=== PATIENT | female | born 1945 | race Caucasian/White ===

== ENCOUNTER 2019-06-21 16:21 | Inpatient (IN) | payer MEDICARE, SELFPAY ==
[2019-06-21] VITALS (22 sets, daily range): BP systolic 78–129; BP diastolic 48–112; PULSE 43–149; RESP 15–28; TEMP 36.8–37.1; O2SAT 46–99
--- NOTE | ~2019-06-21 | XR_ITS ---
XR chest 1V portable 06/24/2019 06:32 Indication: Pneumonia Procedure: AP portable chest Comparison: Comparison to multiple prior studies sequentially, with oldest reviewed study dated 04/2017. Findings: Heart size normal. Persistent extensive bilateral airspace disease without significant causey ge. No pleural effusion or pneumothorax. There is atherosclerosis. Impression: 1: Stable bilateral airspace disease since 06/21/2019. Differential diagnosis includes pneumonia versu s edema. Reviewed, dictated and finalized at location A. Impression: 1: Stable bilateral airspace disease since 06/21/2019. Differential diagnosis in cludes pneumonia versus edema.
--- NOTE | ~2019-06-21 | XR_ITS ---
XR chest 1V portable 06/23/2019 06:27 Indication: Pneumonia. Dyspnea. Procedure: AP portable chest Comparison: Comparison to multiple prior studies sequentially, with oldest reviewed study dated 04/2017. Findings: Heart size normal. Improving bilateral airspace disease. No pleural effusion or pneumothora x. Central line tip near the cavoatrial junction. Impression: 1: Improving bilateral airspace disease may represent pneumonia or edema. Reviewed, dictated and finalized at location A. Impression: 1: Improving bilateral airspace disease may represent pneumonia or edema.
--- NOTE | ~2019-06-21 | CT_ITS ---
EXAMINATION: CT brain wo con DATE: 06/21/2019 17:12 INDICATION: Weakness. TECHNIQUE: Computed tomography (CT) of the head was performed without intravenous contrast. The dose- length product was 681.00 mGy-cm. The mA was adjusted according to patient size. Iterative reconstruc tion technique was employed. COMPARISON: CT dated 06/23/2017 FINDINGS: Generalized atrophy. There are scattered moderate periventricular and subcortical white mat ter changes, most likely related to small vessel ischemic disease (microangiopathy). There is intracr anial atherosclerosis. No acute intracranial hemorrhage, infarction, mass or mass effect. No ventricu lomegaly or midline shift. Basilar cisterns are patent. Paranasal sinuses and mastoids are pneumatize d. No depressed skull fractures. IMPRESSION: 1. No acute intracranial abnormality. 2: Chronic age-related findings. Reviewed, dictated and finalized at location A.
--- NOTE | ~2019-06-21 | XR_ITS ---
XR chest port-a-cath/central 06/21/2019 22:36 Indication: Central line placement. Pneumonia. Procedure: AP portable chest Comparison: 06/21/2019 Findings: Heart size normal. Interval progression of diffuse bilateral airspace disease. Right IJ gabriela tral line tip near the cavoatrial junction. There is atherosclerosis and ectasia of the aorta. No ple ural effusion or pneumothorax. Impression: 1: Interval progression of diffuse bilateral airspace disease which may represent edema or pneumonia. Reviewed, dictated and finalized at location A. Impression: 1: Interval progression of diffuse bilateral airspace disease which may represe nt edema or pneumonia.
--- NOTE | ~2019-06-21 | XR_ITS ---
XR chest 1V portable 06/21/2019 17:16 Indication: Patient tested positive for code with 2 weeks ago. Weakness. Procedure: AP view of the chest Comparison: 05/24/2017 Findings: There are bibasilar infiltrates. Heart size normal. There is atherosclerosis. No edema or p neumothorax. The lungs are hyperinflated which is consistent with, but not diagnostic of chronic obst ructive pulmonary disease. There are degenerative changes of the shoulders. Impression: 1: Bibasilar infiltrates may represent atelectasis and/or pneumonia. Reviewed, dictated and finalized at location A. Impression: 1: Bibasilar infiltrates may represent atelectasis and/or pneumonia.
--- NOTE | ~2019-06-21 | XR_ITS ---
EXAMINATION: XR chest 1V portable DATE: 06/25/2019 06:20 INDICATION: Pneumonia TECHNIQUE: frontal view of the chest was obtained. COMPARISON: Chest radiograph dated 06/24/2019 FINDINGS: No significant interval change in bilateral mild scattered patchy airspace opacities. No pleural effu morteza or pneumothorax. The cardiomediastinal silhouette is normal. Atherosclerotic aorta. Cholecystect trever clips in the right upper quadrant. IMPRESSION: 1. Unchanged mild scattered bilateral airspace disease most likely related to pneumonia Reviewed, dictated and finalized at location A. IMPRESSION: 1. Unchanged mild scattered bilateral airspace disease most likely related to p neumonia
--- NOTE | 2019-06-21 16:15 | PC.NURSE ---
Pt. was sinus rhythm at 82 BPM. Pt. went into atrial flutter at 142 BPM shortly after. EDP notified and is aware. Second EKG ordered.
--- NOTE | 2019-06-21 16:25 | ECG_ITS ---
Measurements Intervals [place] Rate: 82 P: 101 GA: 196 QRS: 31 QRSD: 125 T: 58 QT: 399 QTc: 469 Interpretive Statements SINUS RHYTHM RIGHT BUNDLE BRANCH BLOCK BASELINE ARTIFACT- I, III, AVL, V5 ABNORMAL ECG Electronically Signed On 06-21-2019 16:42:55 CDT by Bryan Cole D.O.
--- NOTE | 2019-06-21 16:33 | ED.AMS ---
HPI - Altered Mental Status General Chief Complaint: Weakness Stated Complaint: LETHARGY Time Seen by Provider: 06/21/19 16:23 Source: EMS Limitations: altered mental status History of Present Illness HPI narrative: Pt sent here from the NH due to decrease responsiveness. Unable to get any history due to ams. Related Data Home Medications Medication Instructions Recorded Confirmed aspirin [Aspirin Low Dose] 81 mg PO DAILY 06/21/19 atorvastatin 20 mg PO DAILY 06/21/19 cholecalciferol (vitamin D3) 25 mcg PO DAILY 06/21/19 escitalopram oxalate 10 mg PO DAILY 06/21/19 furosemide 40 mg PO DAILY 06/21/19 levothyroxine 137 mcg PO DAILY 06/21/19 losartan 100 mg PO DAILY 06/21/19 metformin 500 mg PO DAILY 06/21/19 Allergies Allergy/AdvReac Type Severity Reaction Status Date / Time codeine AdvReac Mild NAUSEA Verified 06/23/17 07:12 Review of Systems Review of Systems: ROS unobtainable: Yes unobtainable due to mental status [facility] Social History Social History Gender identity (if verbalized by the patient): Female Exam Const: General: ill appearing Other: lethargic HENMT: Ears: external ears normal General nose exam: Normal nares present Face and sinus: normal facial exam Mouth: Yes dry mucous membranes Neck: Neck: normal visual inspection Chest: Chest palpation & inspection: normal inspection of the chest Resp: Effort & Inspection: normal respiratory effort Auscultation: clear to auscultation bilaterally Cardio: Rate: tachycardic Rhythm: regular rhythm GI: GI Palp: Yes Soft to palpation Auscultation: normal bowel sounds Skin: General skin exam: normal color Neuro: Other: lethargic, non verbal, unable to follow commands Course Vital Signs Vital signs: Vital Signs Temperature 36.8 C 06/21/19 16:08 Pulse Rate 142 H 06/21/19 16:08 Respiratory Rate 24 H 06/21/19 16:08 Blood Pressure 107/64 06/21/19 16:08 Pulse Oximetry 96 06/21/19 16:08 Temperature 37.1 C 06/21/19 20:30 Pulse Rate 43 L 06/21/19 21:15 Respiratory Rate 15 06/21/19 21:15 Blood Pressure 95/55 L 06/21/19 21:15 Pulse Oximetry 94 06/21/19 21:15 Procedures Central Line Placement Right IJ: Central Line Date: 06/21/19 Central Line Time: 22:00 Performed Emergently - Given emergent patient condition, temporal constraints may have precluded informed consent.: Yes Time Out Performed: Yes Patient Placed on Monitor/Pulse Ox: Yes Max. Sterile Barrier Technique: Caps Central Line Prep: 2% chlorhexidine scrub and sterile drapes applied Technique: US-Guided Local Anesthetic: lidocaine 1% Ultrasound Used for Placement: Yes Central Line Lumen Inserted: triple Post Procedure: sutured in place, good blood return, all ports aspirated, flushed, capped and sterile dressing applied Patient Tolerated Procedure: well Complications: none MDM - Altered Mental Status MDM Narrative Medical decision making narrative: DISCUSSED WITH DR GILBERT AND ACCEPTED THE ADMIT Lab Data Result diagrams: 06/21/19 16:53 06/21/19 16:53 Labs: Lab Results 06/21/19 06/21/19 06/21/19 Range/Units 16:37 16:52 16:53 WBC 13.3 H (4.5-10.0) K/mm3 RBC 4.45 (4.2-5.4) M/mm3 Hgb 12.8 (12.0-15.0) g/dL Hct 41.3 (37.0-47.0) % MCV 92.8 (80-100) fl MCH 28.8 (26-34) pg MCHC 31.0 L (32-36) g/dl RDW 15.1 H (11.5-14.5) % Plt Count 415 H (150-375) k/mm3 MPV 12.7 H (7.4-10.4) fl Immature Gran % (Auto) 2.7 H (0-0.5) % Neut % (Auto) 83.6 H (45.5-73.1) % Lymph % (Auto) 8.9 L (18.3-44.2) % [place] % (Auto) 4.6 (2.6-8.5) % Eos % (Auto) 0.0 (0-4.4) % Baso % (Auto) 0.2 (0.2-1.2) % Lymph # (Auto) 1.19 (0.9-3.2) K/mm3 [place] # (Auto) 0.6 (0.1-0.6) K/mm3 Eos # (Auto) 0.0 (0-0.3) K/mm3 Baso # (Auto) 0.0 (0.0-0.1) K/mm3 Abs Immat Gran (auto) 0
[2019-06-21] MEDS: SODIUM CHLORIDE 0.9% IV 1,000 ML 999 ML IV CONT (16:58)
[2019-06-21 16:59] LABS: Glucose Point of Care 213 (65-105)
[2019-06-21 17:04] LABS: Basophils Percent Auto 0.2 % (0.2-1.2); Hematocrit 41.3 % (37.0-47.0); Hemoglobin 12.8 g/dL (12.0-15.0); Immature Granulocyte Absolute 0.36 K/mm3 (0.00-0.031); Immature Granulocyte Percent A 2.7 % (0-0.5); Lymphocytes Absolute Auto 1.19 K/mm3 (0.9-3.2); Lymphocytes Percent Auto 8.9 % (18.3-44.2); Mean Corpuscular Hemoglobin 28.8 pg (26-34); Mean Corpuscular Volume 92.8 fl (80-100); Mean Platelet Volume 12.7 fl (7.4-10.4); Monocytes Absolute Auto 0.6 K/mm3 (0.1-0.6); Monocytes Percent Auto 4.6 % (2.6-8.5); Neutrophils Absolute Auto 11.2 K/mm3 (1.3-6.7); Neutrophils Percent Auto 83.6 % (45.5-73.1); Platelet Count Result 415 k/mm3 (150-375); Red Blood Count 4.45 M/mm3 (4.2-5.4); Red Cell Distribution Width 15.1 % (11.5-14.5); White Blood Count 13.3 K/mm3 (4.5-10.0)
[2019-06-21 17:10] LABS: Add Urine Microscopic? YES; Appearance Urine Cloudy (Clear); Bacteria Urine Trace /hpf; Bilirubin Urine Negative (Negative); Blood Urine 2+ (Negative); Budding Yeast Urine Present /hpf; Color Urine Yellow (Yellow); Glucose Urine UA Negative (Negative); Hyaline Casts Urine 15-19 /lpf; Ketones Urine Trace mg/dL (Negative); Leukocyte Esterase Ur 3+ LEU/UL (Negative); Nitrate Urine Negative (Negative); Protein Urine 1+ mg/dL (Negative); RBC Urine 21-50 /hpf (0-2); Specific Grav Ur 1.018 (1.001-1.035); Squamous Epithelial Cell Urine Many /hpf (Few); Urobilinogen Urine Negative mg/dL (<2.0); WBC Urine >75 /hpf
--- NOTE | 2019-06-21 17:15 | ECG_ITS ---
Measurements Intervals [place] Rate: 151 P: 257 LA: 74 QRS: 73 QRSD: 122 T: 33 QT: 320 QTc: 509 Interpretive Statements ATRIAL FLUTTER/TACHYCARDIA WITH RAPID VENTRICULAR RESPONSE RIGHT BUNDLE BRANCH BLOCK ST-T WAVE ABNORMALITY IN ANTEROLAT/INF LEADS- CONSIDER ISCHEMIA BASELINE ARTIFACT- I, II ABNORMAL ECG Electronically Signed On 06-22-2019 7:05:15 CDT by Bryan Cole D.O.
[2019-06-21 17:17] LABS: Alanine Aminotransferase 12 U/L (4-35); Albumin Level 4.1 g/dL (3.5-5.1); Alkaline Phosphatase 105 U/L (38-126); Aspartate Amino Transferase 29 U/L (14-36); Blood Urea Nitrogen 115 mg/dL (7-17); Calcium 9.9 mg/dL (8.4-10.2); Carbon Dioxide 28 mmol/L (22-30); Chloride 115 mmol/L (98-107); Estimated CRCL calculation 15 ml/min; Estimated Glomerular Filt Rate 16; Glucose 257 mg/dL (65-105); Lactic Acid Reflex 3.2 mmol/L (0.7-2.1); Potassium 4.1 mmol/L (3.4-5.0); Sodium 155 mmol/L (137-145)
[2019-06-21] MEDS: SODIUM CHLORIDE 0.9% IV 2,200 ML/1,000 ML BAG 999 ML IV CONT (17:39)
[2019-06-21 17:44] LABS: CRP 5.5 mg/dL (<1.0)
--- NOTE | 2019-06-21 17:57 | PC.NURSE ---
1724 Pt. BP 79/52 via manual auscultation. EDP notified. EDP ordered 30ml/kg/hr of normal saline via verbal order readback with pressure bag on fluids. EDP order second large bore IV via verbal order readback. HR 154 1735 1st bag of normal saline infused, BP is 86/51, second bag initiated, HR 146. Rocephin started. 1745 BP is 97/58 HR 133. EDP notified. Will continue to monitor Pt. status See MAR charting for medications. Vitals charted.
--- NOTE | 2019-06-21 18:36 | PC.NURSE ---
Addendum entered by William Valadez RN 06/21/19 18:38: 7mcg/min (13.1 mls/hr) Original Note: Per EDP via verbal order readback start IVFs going at 250ml/hrs in peripheral line and start levophed at 7mcg/hr in the other peripheral line and set up for central line access.
[2019-06-21] MEDS: NOREPINEPHRINE 8 MG/D5W 250 ML 8 MG/250 ML BAG 13.1 MG IV CONT (18:38)
[2019-06-21] MEDS: SODIUM CHLORIDE 0.9% IV 2,200 ML/1,000 ML BAG 250 ML IV CONT (18:39)
--- NOTE | 2019-06-21 18:54 | PC.NURSE ---
IVFs infused 1800. Blood pressure decreased to 78/67 at 1830, EDP notified. See MAR and additional notes for intervention.
[2019-06-21 20:02] LABS: Reflex Lactic Acid Yes or No Add Lactic
[2019-06-21 20:41] LABS: Lactic Acid 3.4 mmol/L (0.7-2.1)
--- NOTE | 2019-06-21 22:00 | PC.NURSE ---
central line placed by RICKY Rowan. Lorri REYES at bedside. pt tolerated well.
[2019-06-21] MEDS: LORAZEPAM INJ 2 MG/ML VIAL (22:29)
--- NOTE | 2019-06-21 23:46 | PM.IMHP ---
H&P: HPI History of Present Illness Chief complaint: Septic Shock Narrative: Date and time of patient contact: 06/22/2019 at 1:05 a.m. Source of information: Outside medical records, ER report. Patient is unable to provide history due to her advanced dementia. Bhumi Levin is a 74 year old female with a past medical history of dementia, CVA, type 2 diabetes mellitus, hypertension, and positive COVID-19 testing 2 weeks ago who presented to the ER via EMS from [facility] due to increasing lethargy and unresponsive. The patient's baseline mental status is unknown. shelter staff reported that the patient's oxygen saturations were 70% on room air. However when EMS arrived at the facility patient's oxygen saturations were 92% on room air. The patient was placed on 2 L nasal cannula with improvement in oxygen saturations 96% on room air. The patient was in junctional tachycardia/atrial flutter on arrival to the ER with heart rate in the 150s. To the ER was 107/64 but almost immediately dropped to 79/52. Patient was placed on Levophed through peripheral IV and received 30 mL/kilos fluid bolus in the ER. Patient's blood pressures improved to the low 100 systolic over 50s diastolic. Her heart rate improved and range between 46 and 82. On telemetry. The patient is in sinus rhythm/bradycardia with a first-degree AV block. With stimulation the patient's heart rate does increase up into the 60s and 80s. But at rest her heart rate drops into the 40s. Patient arrived to the unit on 5 mg of Levophed and her heart rate was 130/70. The patient was able to follow simple commands such as sticking her tongue. Her responses to commands were variable. She did not really speak with staff but was moaning intermittently. Review of Systems Review of Systems: ROS unobtainable: Yes unobtainable due to medical condition and unobtainable due to mental status [facility] Past Medical History Medical History (Updated 06/21/19 @ 23:55 by Jocelyn Bansal DO) Coronary artery disease CVA (cerebral vascular accident) Dementia Essential hypertension GERD (gastroesophageal reflux disease) Hyperlipidemia Hypothyroidism Osteomyelitis of right shoulder August 2018-November 2018 Rheumatoid arthritis Tobacco dependence Type 2 diabetes mellitus Vitamin D deficiency Surgical History Surgical History (Updated 06/21/19 @ 23:54 by Jocelyn Bansal DO) History of appendectomy History of hysterectomy for cancer Endometrial/uterine cancer Hx of tonsillectomy Previous back surgery Family History Family History (Updated 06/21/19 @ 23:56 by Jocelyn Bansal DO) Other Hypertension Social History Social History (Updated 06/22/19 @ 02:38 by Jocelyn Bansal DO) Social History: Primary care physician: Dr. Aisha Mata Code status: Full code Smoking status: Former smoker Tobacco type: cigarettes Smoking end date: 06/21/14 Alcohol intake: never Substance use: never Living arrangements: half-way Additional living arrangements comments: [facility]. Gender identity (if verbalized by the patient): Female Spiritual care concerns: No Agree to blood products: Yes Meds Home Medications and Allergies Home Medications Medication Instructions Recorded Confirmed Type hydrocodone 5 mg-acetaminophen 325 1 tablet PO Q6H PRN #240 tablet 06/05/19 06/22/19 Rx mg tablet aspirin [Aspirin Low Dose] 81 mg PO DAILY 06/21/19 06/22/19 History atorvastatin 20 mg PO DAILY 06/21/19 06/22/19 History cholecalciferol (vitamin D3) 25 mcg PO DAILY 06/21/19 06/22/19 History escitalopram oxalate 10 mg PO DAILY 06/21/19 06/22/19 History furosemide 40 mg PO DAILY 06/21/19 06/22/19 History levothyroxine 137 mcg PO DAILY 06/21/19 06/22/19 History losartan 100 mg PO DAILY 06/21/19 06/22/19 History metformin 500 mg PO DAILY 06/21/19 06/22/19 History iron ps [id number] acid 1 ca
[2019-06-22] VITALS (21 sets, daily range): BP systolic 114–154; BP diastolic 51–90; PULSE 46–89; RESP 15–21; TEMP 36.3–37.1; O2SAT 93–100; BMI 30.9
--- NOTE | 2019-06-22 00:41 | ADMIMU ---
This patient, Bhumi Levin, was admitted to ICU status, and placed in Intensive Care Unit-8 on 06/22/19 at 1215am. Patient/family oriented to hospital policies and general routines including ID bracelet, bed and alarms, visiting hours, pain management, procedures, bathroom and other care routines, personal items, smoking policy, room service/diet, and visiting hours. Valuables list has been completed. Information on how to activate the Rapid Response Team has been discussed. Patient/Family are encouraged to report perceived risks to care and to ask questions if they do not understand what they are told or what they should do.
[2019-06-22 00:47] LABS: Alveolar/Arterial O2 Gradient 142.4 mmHg; Base Excess ABG -5.5 mEq/l (+/-2.0); Carboxyhemoglobin 0.3 % THb (0-2.0); Device NASAL CANNULA; Fractional Inspired Oxygen 36 %; HCO3 ABG 19.1 mEq/l (22.0-26.0); Methemoglobin ABG 0.5 %THb (0-1.5); Modified Allen's Test Pass; Oxygen Content ABG 18.6 %vol (16.0-22.0); Oxygen Saturation ABG 94.5 % (95.0-100.0); Oxyhemoglobin 92.4 % THb (90.0-100.0); PCO2 ABG 34.6 mmHg (35.0-45.0); PO2 ABG 74.1 mmHg (80.0-100.0); PO2 FiO2 Ratio Arterial Blood 2.06 %; Reduced Hemoglobin 6.8 %THb (0-5.0); Site Drawn LEFT RADIAL; Total Hemoglobin 14.3 g/dL (12.0-18.0)
[2019-06-22] MEDS: DEXTROSE 5%/0.45% SOD CHL 1,000 ML 100 ML (01:03)
[2019-06-22] MEDS: INSULIN ASPART (*BKC) 100 UNITS/ML SUB-Q ×2 (01:04→05:19)
--- NOTE | 2019-06-22 01:19 | PC.NURSE ---
06/22/19 0015 Pt admitted to floor with levophed running at 5mcg.
[2019-06-22 01:25] LABS: Glucose Point of Care 223 (65-105)
[2019-06-22 02:43] LABS: Basophils Percent Auto 0.3 % (0.2-1.2); Hematocrit 33.8 % (37.0-47.0); Hemoglobin 10.6 g/dL (12.0-15.0); Immature Granulocyte Absolute 0.45 K/mm3 (0.00-0.031); Immature Granulocyte Percent A 3.2 % (0-0.5); Lymphocytes Absolute Auto 1.72 K/mm3 (0.9-3.2); Lymphocytes Percent Auto 12.1 % (18.3-44.2); Mean Corpuscular HGB Conc 31.4 g/dl (32-36); Mean Corpuscular Hemoglobin 29.1 pg (26-34); Mean Corpuscular Volume 92.9 fl (80-100); Mean Platelet Volume 12.8 fl (7.4-10.4); Monocytes Absolute Auto 0.9 K/mm3 (0.1-0.6); Monocytes Percent Auto 6.1 % (2.6-8.5); Neutrophils Absolute Auto 11.2 K/mm3 (1.3-6.7); Neutrophils Percent Auto 78.3 % (45.5-73.1); Platelet Count Result 384 k/mm3 (150-375); Red Blood Count 3.64 M/mm3 (4.2-5.4); Red Cell Distribution Width 15.1 % (11.5-14.5); White Blood Count 14.3 K/mm3 (4.5-10.0)
[2019-06-22 02:48] LABS: Lactate Dehydrogenase 511 U/L (313-618)
[2019-06-22 02:52] LABS: Lactic Acid Reflex 0.6 mmol/L (0.7-2.1)
[2019-06-22 02:57] LABS: Blood Urea Nitrogen 104 mg/dL (7-17); Calcium 8.3 mg/dL (8.4-10.2); Carbon Dioxide 23 mmol/L (22-30); Chloride 120 mmol/L (98-107); Estimated CRCL calculation 18 ml/min; Estimated Glomerular Filt Rate 22; Glucose 297 mg/dL (65-105); Potassium 3.5 mmol/L (3.4-5.0); Sodium 149 mmol/L (137-145)
[2019-06-22 04:00] LABS: Magnesium 2.1 mg/dL (1.6-2.3)
[2019-06-22] MEDS: SODIUM CHLORIDE 0.9% IV 1,000 ML 100 ML IV CONT ×2 (05:14→14:44)
[2019-06-22] MEDS: SODIUM CHLORIDE 0.9% IV 500 ML 250 ML IV CONT (05:14)
[2019-06-22 05:38] LABS: Glucose Point of Care 249 (65-105)
[2019-06-22] MEDS: LEVOTHYROXINE SODIUM INJ 100 MCG/5 ML VIAL 75 MCG IV PUSH (06:38)
[2019-06-22 08:20] LABS: SARS-CoV-2 RNA PCR Positive
--- NOTE | 2019-06-22 11:19 | PM.IMPN ---
Progress Note: A&P Assessment and Plan (1) Pneumonia due to COVID-19 virus: Code(s): U07.1 - COVID-19; J12.89 - Other viral pneumonia Status: Acute Assessment and Plan: Continue Rocephin and doxycycline Continue supportive care (2) Septic shock: Code(s): A41.9 - Sepsis, unspecified organism; R65.21 - Severe sepsis with septic shock Status: Acute Assessment and Plan: Weaned off pressors (3) Pyuria: Code(s): R82.81 - Pyuria Status: Acute Assessment and Plan: Empiric antibiotic therapy with Rocephin. Urine cultures are pending. (4) Acute renal failure: Qualifiers: Acute renal failure type: unspecified Qualified Code(s): N17.9 - Acute kidney failure, unspecified Code(s): N17.9 - Acute kidney failure, unspecified Status: Acute Assessment and Plan: Likely due to ATN from septic shock. Continue IV fluid hydration. Follow-up lab (5) Atrial flutter: Qualifiers: Atrial flutter type: unspecified Qualified Code(s): I48.92 - Unspecified atrial flutter Code(s): I48.92 - Unspecified atrial flutter Status: Acute Assessment and Plan: Resolved with treatment of sepsis Subjective Date/time seen: 06/22/19 11:19 Interval history: 74-year-old [facility] resident admitted with pneumonia and respiratory failure. COVID-19 positive. No complaints Review of Systems Review of Systems: ROS unobtainable: Yes unobtainable due to medical condition Exam Narrative: Exam Narrative: HEENT: EOMI, PERRL, sclerae nonicteric, pharyngeal mucosa pink and intact NECK: No JVD CHEST: Coarse breath sounds Normal effort. HEART: NL S1/S2, regular, no murmur ABDOMEN: BS+, soft, nontender, no mass, no bruits EXTREMITIES: No cyanosis, edema, or clubbing NEUROLOGIC: CN intact and symmetric to inspection. MUSCULOSKELETAL: Tone and strength symmetric. PSYCH: Alert. Oriented to person only Objective Data Vital Signs Vital Signs: Vital Signs - 24 hr 06/21/19 16:08 06/21/19 17:08 06/21/19 17:12 Temperature 98.2 F Pulse Rate 142 H 142 H Respiratory Rate 24 H 28 H Blood Pressure 107/64 Pulse Oximetry 96 99 06/21/19 17:24 06/21/19 17:45 06/21/19 18:01 Temperature Pulse Rate 149 H 133 H 109 H Respiratory Rate 25 H 23 H 23 H Blood Pressure 79/52 L 97/58 L 110/92 H Pulse Oximetry 95 97 99 06/21/19 18:30 06/21/19 18:41 06/21/19 18:49 Temperature Pulse Rate 128 H 126 H 138 H Respiratory Rate 22 H 26 H Blood Pressure 78/67 L 89/53 L Pulse Oximetry 99 97 06/21/19 19:07 06/21/19 19:16 06/21/19 19:30 Temperature Pulse Rate 76 76 67 Respiratory Rate 27 H 25 H 24 H Blood Pressure 99/73 L 102/51 L 92/48 L Pulse Oximetry 99 94 94 06/21/19 19:45 06/21/19 20:04 06/21/19 20:30 Temperature 98.8 F Pulse Rate 60 66 67 Respiratory Rate 25 H 15 22 H Blood Pressure 88/49 L 94/58 L 102/70 Pulse Oximetry 93 94 91 06/21/19 20:46 06/21/19 21:00 06/21/19 21:15 Temperature Pulse Rate 53 L 61 43 L Respiratory Rate 20 21 H 15 Blood Pressure 105/53 L 114/72 95/55 L Pulse Oximetry 92 91 94 06/21/19 22:00 06/21/19 22:35 06/21/19 22:45 Temperature Pulse Rate 74 46 L 46 L Respiratory Rate 17 20 21 H Blood Pressure 129/112 H 101/52 L 104/54 L Pulse Oximetry 92 46 L 99 06/21/19 23:00 06/22/19 00:00 06/22/19 00:15 Temperature Pulse Rate 47 L 63 48 L Respiratory Rate 21 H 18 Blood Pressure 105/53 L 115/60 Pulse Oximetry 99 99 06/22/19 00:30 06/22/19 00:42 06/22/19 00:50 Temperature 97.3 F L Pulse Rate 82 63 Respiratory Rate 20 20 Blood Pressure 140/70 Pulse Oximetry 93 97 95 06/22/19 02:00 06/22/19 04:00 06/22/19 06:00 Temperature 97.8 F Pulse Rate 46 L 70 73 Respiratory Rate 18 19 19 Blood Pressure 114/51 L 132/66 136/90 Pulse Oximetry 99 98 06/22/19 06:26 06/22/19 06:49 06/22/19 07:35 Temperature 98.2 F Pulse Rate 73 67 64 Resp
[2019-06-22] MEDS: ENOXAPARIN 30 MG/0.3 ML SYRINGE SUB-Q (11:23)
[2019-06-22 11:31] LABS: Glucose Point of Care 178 (65-105)
--- NOTE | 2019-06-22 13:59 | WPDCNINT ---
Assessment and Plan Assessment and plan (1) Septic shock: Code(s): A41.9 - Sepsis, unspecified organism; R65.21 - Severe sepsis with septic shock Status: Acute Assessment and Plan: septic shock related UTI, pneumonia - patient was given 30 mL /kg of IV fluids, right which she was hypotensive, central line was placed in the ER and started on Levophed. - was briefly off Levophed this morning but had to be restarted as a blood pressures were low. Will maintain mean arterial pressures > 65 mmHg - patient with acute kidney injury, urine output has been improving, creatinine trending down - decreased IV fluids as chest x-ray was looked congested - lactic acid has normalized to 0.6 ( 3.4 on admission) - continue ceftriaxone and doxycycline - blood and urine cultures have been obtained (2) Urinary tract infection: Qualifiers: Urinary tract infection type: acute pyelonephritis Qualified Code(s): N10 - Acute pyelonephritis Code(s): N39.0 - Urinary tract infection, site not specified Status: Acute Assessment and Plan: continue antibiotics as above, awaiting urine culture results (3) Pneumonia due to COVID-19 virus: Code(s): U07.1 - COVID-19; J12.89 - Other viral pneumonia Status: Acute Assessment and Plan: possible pneumonia on chest x-ray - patient also positive for SARS-CoV-2 PCR. - currently on room air with good O2 sats, will continue to monitor - will obtain chest x-ray in a.m. (4) Acute renal failure: Code(s): N17.9 - Acute kidney failure, unspecified Status: Acute Assessment and Plan: patient with acute kidney injury, ( creatinine in August 2018 was 1.2) - patient has been adequately fluid-resuscitated, will decrease maintaining IV fluids - continue to monitor urine output, electrolytes and renal function - lactic acidosis has resolved (5) DVT prophylaxis: Code(s): Z29.9 - Encounter for prophylactic measures, unspecified Status: Acute Assessment and Plan: DVT prophylaxis: low Additional Plan will discuss with family code status: full code critical care time spent: 44 minutes Due to a high probability of clinically significant, life threatening deterioration, the patient required my highest level of preparedness to intervene emergently and I personally spent this critical care time directly and personally managing the patient. This critical care time included obtaining a history; examining the patient; pulse oximetry; ordering and review of studies; arranging urgent treatment with development of a management plan; evaluation of patient's response to treatment; frequent reassessment; and discussions with other providers. It was exclusive of separately billable procedures and treating other patients and teaching time. Please see Assessment and Plan section and the rest of the note for further information on patient assessment and treatment Cold Reduction Roller Consult Note Consult date: 06/22/19 Time Seen: 07:04 HPI: Bhumi Levin is a 74 year old female with a past medical history of dementia, CVA, type 2 diabetes mellitus, hypertension, and positive COVID-19 testing 2 weeks ago who presented to the ER via EMS from [facility] due to increasing lethargy and unresponsive. patient presented to the ED from the care home with decreased O2 sats. Patient was found to be hypotensive, in septic shock, central line was inserted after patient received IV fluids started on Levophed. Patient was sent to the ICU for further management. Patient seen and examined this morning. Her SARS-Cov-2 PCR was again positive from 06/21/2019. Patient was briefly off Levophed and was restarted on 1 or 2 mcg/min. her urine output is picking up. Creatinine is trending down. Lactic acid is 0.6 from 3.[address] was negative on admission. Chest x-ray shows diffuse bilateral airspace disease. Patient
[2019-06-22 17:36] LABS: Glucose Point of Care 141 (65-105)
[2019-06-22 23:15] LABS: Glucose Point of Care 135 (65-105)
[2019-06-22 23:47] LABS: D Dimer > 20.00 ug/mL (<0.48)
[2019-06-23] VITALS (15 sets, daily range): BP systolic 100–170; BP diastolic 46–94; PULSE 50–88; RESP 12–25; TEMP 36.1–37.1; O2SAT 92–99
[2019-06-23] MEDS: SODIUM CHLORIDE 0.9% IV 1,000 ML 100 ML IV CONT (01:36)
[2019-06-23] MEDS: LEVOTHYROXINE SODIUM INJ 100 MCG/5 ML VIAL 75 MCG IV PUSH (06:20)
[2019-06-23 06:21] LABS: Hematocrit 28.5 % (37.0-47.0); Mean Corpuscular HGB Conc 31.6 g/dl (32-36); Mean Corpuscular Hemoglobin 29.1 pg (26-34); Mean Corpuscular Volume 92.2 fl (80-100); Mean Platelet Volume 12.2 fl (7.4-10.4); Platelet Count Result 239 k/mm3 (150-375); Red Blood Count 3.09 M/mm3 (4.2-5.4); Red Cell Distribution Width 14.9 % (11.5-14.5); White Blood Count 6.5 K/mm3 (4.5-10.0)
[2019-06-23 06:32] LABS: Lactic Acid 0.5 mmol/L (0.7-2.1)
[2019-06-23 06:36] LABS: Alanine Aminotransferase 10 U/L (4-35); Albumin Level 2.8 g/dL (3.5-5.1); Alkaline Phosphatase 70 U/L (38-126); Aspartate Amino Transferase 29 U/L (14-36); Bilirubin,Total 0.5 mg/dL (0.2-1.3); Blood Urea Nitrogen 49 mg/dL (7-17); Calcium 8.4 mg/dL (8.4-10.2); Carbon Dioxide 22 mmol/L (22-30); Chloride 126 mmol/L (98-107); Estimated CRCL calculation 34 ml/min; Estimated Glomerular Filt Rate 44; Glucose 133 mg/dL (65-105); Magnesium 1.8 mg/dL (1.6-2.3); Phosphorus 1.8 mg/dL (2.5-4.5); Potassium 3.6 mmol/L (3.4-5.0); Sodium 149 mmol/L (137-145)
[2019-06-23] MEDS: ENOXAPARIN 30 MG/0.3 ML SYRINGE SUB-Q (09:10)
--- NOTE | 2019-06-23 10:46 | PM.IMPN ---
Progress Note: A&P Assessment and Plan (1) Pneumonia due to COVID-19 virus: Code(s): U07.1 - COVID-19; J12.89 - Other viral pneumonia Status: Acute Assessment and Plan: Continue Rocephin and doxycycline Continue supportive care 5/2 on room air Return to [place] when she demonstrates ability to maintain adequate nutrition (2) Septic shock: Code(s): A41.9 - Sepsis, unspecified organism; R65.21 - Severe sepsis with septic shock Status: Acute Assessment and Plan: Resolved (3) Pyuria: Code(s): R82.81 - Pyuria Status: Acute Assessment and Plan: Negative culture NO UTI (4) Acute renal failure: Qualifiers: Acute renal failure type: unspecified Qualified Code(s): N17.9 - Acute kidney failure, unspecified Code(s): N17.9 - Acute kidney failure, unspecified Status: Acute Assessment and Plan: Likely due to ATN from septic shock. 5/ creatinine 1.2 (5) Atrial flutter: Qualifiers: Atrial flutter type: unspecified Qualified Code(s): I48.92 - Unspecified atrial flutter Code(s): I48.92 - Unspecified atrial flutter Status: Acute Assessment and Plan: Resolved with treatment of sepsis Subjective Date/time seen: 06/23/19 10:46 Interval history: 74-year-old prison resident admitted with pneumonia and respiratory failure. COVID-19 positive. No complaints Review of Systems Review of Systems: ROS unobtainable: Yes unobtainable due to mental status Exam Narrative: Exam Narrative: HEENT: EOMI, PERRL, sclerae nonicteric, pharyngeal mucosa pink and intact NECK: No JVD CHEST: Coarse breath sounds Normal effort. HEART: NL S1/S2, regular, no murmur ABDOMEN: BS+, soft, nontender, no mass, no bruits EXTREMITIES: No cyanosis, edema, or clubbing NEUROLOGIC: CN intact and symmetric to inspection. MUSCULOSKELETAL: Tone and strength symmetric. PSYCH: Alert. Oriented to person only Objective Data Vital Signs Vital Signs: Vital Signs - 24 hr 06/22/19 11:32 06/22/19 12:00 06/22/19 13:57 Temperature 98.4 F Pulse Rate 75 77 72 Respiratory Rate 21 H 17 Blood Pressure 114/55 L 128/60 Pulse Oximetry 93 97 06/22/19 16:00 06/22/19 17:58 06/22/19 20:00 Temperature 98.7 F 98.7 F Pulse Rate 81 78 83 Respiratory Rate 18 17 20 Blood Pressure 130/69 138/69 154/88 H Pulse Oximetry 95 98 98 06/22/19 21:55 06/23/19 00:00 06/23/19 01:42 Temperature 98.4 F Pulse Rate 77 66 54 L Respiratory Rate 20 20 22 H Blood Pressure 154/88 H 100/48 L 115/72 Pulse Oximetry 94 97 94 06/23/19 03:53 06/23/19 04:00 06/23/19 05:54 Temperature 98.2 F Pulse Rate 53 L 53 L 65 Respiratory Rate 12 16 Blood Pressure 118/46 L 100/52 L Pulse Oximetry 95 96 06/23/19 08:00 06/23/19 08:01 06/23/19 09:01 Temperature 98.5 F Pulse Rate 62 50 L 78 Respiratory Rate 13 25 H Blood Pressure 115/48 L 128/59 L Pulse Oximetry 97 99 06/23/19 10:00 06/23/19 10:11 Temperature Pulse Rate 50 L 52 L Respiratory Rate 12 Blood Pressure 112/53 L Pulse Oximetry 92 Intake/Output Intake/Output: Intake & Output 06/20/19 06/21/19 06/22/19 06/23/19 23:59 23:59 23:59 23:59 Intake Total 3100 3188 Output Total 1082 850 Balance 3100 2106 -850 Meds/Results Medications: Active Medications Generic Name Dose Route Start Last Admin Trade Name Freq PRN Reason Stop Dose Admin Dextrose 12.5 gm 06/21/19 23:33 Dextrose 50% Syringe IV PUSH PRN PRN Hypoglycemia Protocol Enoxaparin Sodium 30 mg 06/22/19 10:35 06/23/19 09:10 Lovenox SUB-Q 30 mg DAILY JELANI Administration Glucagon 1 mg 06/21/19 23:33 Glucagon For Inj IM PRN PRN Hypoglycemia Protocol Glucose 15 gm 06/21/19 23:33 Glutose 15 PO PRN PRN Hypoglycemia Protocol Doxycycline Hyclate 100 mg/ 100 mls @ 100 mls/hr 06/21/19 23:30 06/23/19 09:09 Dextrose IVPB
--- NOTE | 2019-06-23 11:22 | WPDINTPN ---
Progress Note: A&P Assessment and Plan (1) Septic shock: Code(s): A41.9 - Sepsis, unspecified organism; R65.21 - Severe sepsis with septic shock Status: Acute Assessment and Plan: septic shock related UTI, pneumonia. - Patient was adequately fluid resuscitated, central line was inserted in the ED and patient was started on Levophed. - Patient currently off Levophed for greater than 24 hours - admitted with acute kidney injury, creatinine has normalized - continue maintenance IV fluids patient not taking anything by mouth - lactic acid has normalized to 0.6 ( 3.4 on admission) - continue ceftriaxone and doxycycline - blood cultures x2 were negative so far, urine cultures negativ negative (2) Urinary tract infection: Qualifiers: Urinary tract infection type: acute pyelonephritis Qualified Code(s): N10 - Acute pyelonephritis Code(s): N39.0 - Urinary tract infection, site not specified Status: Acute Assessment and Plan: continue antibiotics as above, urine culture (3) Pneumonia due to COVID-19 virus: Code(s): U07.1 - COVID-19; J12.89 - Other viral pneumonia Status: Acute Assessment and Plan: possible pneumonia on chest x-ray - patient also positive for SARS-CoV-2 PCR. - currently on room air with good O2 sats, will continue to monitor - chest x-ray shows improving bilateral airspace disease may represent pneumonia or edema (4) Acute renal failure: Qualifiers: Acute renal failure type: unspecified Qualified Code(s): N17.9 - Acute kidney failure, unspecified Code(s): N17.9 - Acute kidney failure, unspecified Status: Acute Assessment and Plan: patient with acute kidney injury, ( creatinine in August 2018 was 1.2) - patient has been adequately fluid-resuscitated, will decrease maintaining IV fluids - continue to monitor urine output, electrolytes and renal function - lactic acidosis has resolved - creatinine down to 1.2 ( creatinine was 2.9 on admission) (5) DVT prophylaxis: Code(s): Z29.9 - Encounter for prophylactic measures, unspecified Status: Acute Assessment and Plan: DVT prophylaxis: Lovenox Additional Plan will update family discussed with Dr. Carr code status: full code critical care time spent: 33 minutes minutes Due to a high probability of clinically significant, life threatening deterioration, the patient required my highest level of preparedness to intervene emergently and I personally spent this critical care time directly and personally managing the patient. This critical care time included obtaining a history; examining the patient; pulse oximetry; ordering and review of studies; arranging urgent treatment with development of a management plan; evaluation of patient's response to treatment; frequent reassessment; and discussions with other providers. It was exclusive of separately billable procedures and treating other patients and teaching time. Please see Assessment and Plan section and the rest of the note for further information on patient assessment and treatment Subjective Date/time seen: 06/23/19 11:22 REASON FOR CONSULT: septic shock, pneumonia, possible UTI, COVID-19 POSITIVE 06/23/2019: Patient seen and examined the ICU this morning. Remains off Levophed for over 24 hours. Patient is hemodynamically stable, on room air, good O2 sats. Patient will opens her eyes, tries to good morning in return with good morning. Does not follow simple commands, is confused with possible dementia . Urine output has been adequate. Creatinine has normalized to 1.2. ( 2.9 on admission). Blood cultures negative x2, urine cultures are negative. Urine output has been adequate and clear. Review of Systems Review of Systems: ROS unobtainable: Yes unobtainable due to mental status Exam Const: General: comfortable and no acute distress HENMT: Mouth: Ye
[2019-06-23 11:49] LABS: Glucose Point of Care 142 (65-105)
--- NOTE | 2019-06-23 12:52 | PC.NURSE ---
This patient, Bhumi Levin, was transferred to [facility] on 06/23/19 at 1245. Personal belongings sent with patient. Belongings list checked. Report given to Massimo REYES. Appropriate documentation sent with patient.
[2019-06-23] MEDS: SODIUM CHLORIDE 0.9% IV 1,000 ML 50 ML IV CONT (16:18)
--- NOTE | 2019-06-23 16:26 | PC.NURSE ---
Pt turned at 1600 and found to have her IJ line in right hand. No blood noted, but the blue triangle was still in place. Left it there for a while longer to ensure clot secure. When we repositioned her at 1400, her IJ line and dressing were intact.
[2019-06-23] MEDS: NEOMYCIN/POLYMYXIN/BACITRACIN OINTMENT PACKET 1 PACKET (17:10)
[2019-06-23 17:22] LABS: Glucose Point of Care 148 (65-105)
[2019-06-24 00:28] LABS: Glucose Point of Care 170 (65-105)
[2019-06-24 02:00] VITALS: BP 154/93; PULSE 83; RESP 20; TEMP 36.8; O2SAT 98
[2019-06-24 06:00] VITALS: BP 157/85; PULSE 86; RESP 20; TEMP 36.6; O2SAT 93
[2019-06-24 06:18] LABS: Hematocrit 34.5 % (37.0-47.0); Mean Corpuscular HGB Conc 31.9 g/dl (32-36); Mean Corpuscular Hemoglobin 28.6 pg (26-34); Mean Corpuscular Volume 89.8 fl (80-100); Mean Platelet Volume 11.9 fl (7.4-10.4); Platelet Count Result 244 k/mm3 (150-375); Red Blood Count 3.84 M/mm3 (4.2-5.4); Red Cell Distribution Width 14.4 % (11.5-14.5); White Blood Count 8.1 K/mm3 (4.5-10.0)
[2019-06-24] MEDS: LEVOTHYROXINE SODIUM INJ 100 MCG/5 ML VIAL 75 MCG IV PUSH (06:28)
[2019-06-24 06:34] LABS: Glucose Point of Care 170 (65-105)
[2019-06-24 06:43] LABS: Blood Urea Nitrogen 27 mg/dL (7-17); Calcium 8.6 mg/dL (8.4-10.2); Carbon Dioxide 24 mmol/L (22-30); Chloride 121 mmol/L (98-107); Estimated CRCL calculation 40 ml/min; Estimated Glomerular Filt Rate 54; Glucose 165 mg/dL (65-105); Magnesium 1.5 mg/dL (1.6-2.3); Phosphorus 1.6 mg/dL (2.5-4.5); Potassium 3.3 mmol/L (3.4-5.0); Sodium 149 mmol/L (137-145)
[2019-06-24] MEDS: ENOXAPARIN 30 MG/0.3 ML SYRINGE SUB-Q (09:12)
[2019-06-24 10:00] VITALS: BP 160/90; PULSE 88; RESP 20; TEMP 36.7; O2SAT 95
--- NOTE | 2019-06-24 11:39 | PM.DS ---
DS: Diagnosis Admitting Diagnosis Admitting Diagnosis: COVID-19 DS: Summary Time Spent with Patient Time attestation: Total time spent providing and/or coordinating discharge services: DS: Data Data Completed and Pending Labs on day of discharge: Labs from last 24 hours 06/24/19 06/24/19 06/24/19 06:27 06:10 06:10 WBC 8.1 RBC 3.84 L Hgb 11.0 L Hct 34.5 L MCV 89.8 MCH 28.6 MCHC 31.9 L RDW 14.4 Plt Count 244 MPV 11.9 H Sodium 149 H Potassium 3.3 L Chloride 121 H Carbon Dioxide 24 BUN 27 H D Creatinine 1.00 Estim Creat Clear Calc 40 Estimated GFR 54 L Glucose 165 H POC Capillary Glucose 170 H Calcium 8.6 Phosphorus 1.6 L Magnesium 1.5 L 06/24/19 06/23/19 06/23/19 00:23 17:02 11:33 WBC RBC Hgb Hct MCV MCH MCHC RDW Plt Count MPV Sodium Potassium Chloride Carbon Dioxide BUN Creatinine Estim Creat Clear Calc Estimated GFR Glucose POC Capillary Glucose 170 H 148 H 142 H Calcium Phosphorus Magnesium Preliminary micro results at discharge 06/21/19 17:41 Blood Culture - Preliminary Blood 06/21/19 17:41 Blood Culture - Preliminary Blood Discharge Plan Discharge Consulting providers: Omaira Mondragon Patient Instructions: Heart Failure (DC), Urinary Tract Infection in Older Adults (DC), COVID-19 (Coronavirus Disease 2019) (DC) Discharge Medications: No Action furosemide 40 mg Tablet 40 mg PO DAILY RF: 0 metformin 500 mg Tablet 500 mg PO DAILY RF: 0 levothyroxine 137 mcg Tablet 137 mcg PO DAILY RF: 0 atorvastatin 20 mg Tablet 20 mg PO DAILY RF: 0 aspirin [Aspirin Low Dose] 81 mg Tablet,Delayed Release (Dr/Ec) 81 mg PO DAILY RF: 0 losartan 100 mg Tablet 100 mg PO DAILY RF: 0 escitalopram oxalate 10 mg Tablet 10 mg PO DAILY RF: 0 cholecalciferol (vitamin D3) 25 mcg (1,000 unit) Tablet 25 mcg PO DAILY RF: 0 Poly-Iron 150 Forte 150-25-1 mg-mcg-mg Capsule 1 cap PO DAILY RF: 0 hydrocodone-acetaminophen 5-325 mg tablet 1 tablet PO Q6H PRN (Reason: pain) Qty: 240 RF: 0 Date of admission: 06/21/19 23:13 Primary Care Provider: Aisha Mata Admitting Provider: Jocelyn Bansal Attending physician on admission: Jocelyn Bansal Condition: Critical Quality VTE Prophylaxis VTE prophylaxis: mechanical ordered (SCDs)
[2019-06-24] MEDS: POTASSIUM PHOS,M-BASIC-D-BASIC 20 MMOL in SODIUM CHLORIDE 0.9% IV 250 ML 64 MMOL IVPB (11:46)
[2019-06-24] MEDS: INSULIN ASPART (*BKC) 100 UNITS/ML SUB-Q ×2 (11:57→17:49)
[2019-06-24 13:01] LABS: Glucose Point of Care 234 (65-105)
[2019-06-24 13:59] VITALS: BP 155/92; PULSE 85; RESP 20; TEMP 36.8; O2SAT 93
--- NOTE | 2019-06-24 15:02 | P.PNIM_ITS ---
Progress Note: A&P Assessment and Plan (1) Pneumonia due to COVID-19 virus: Code(s): U07.1 - COVID-19; J12.89 - Other viral pneumonia Status: Acute Assessment and Plan: * Continue Rocephin and doxycycline * Continue supportive care * 5/3 on room air * Return to [place] when she demonstrates ability to maintain adequate nutrition (2) Thrush, oral: Code(s): B37.0 - Candidal stomatitis Status: Acute Assessment and Plan: * Presumptive dx based on [employer] developer * IV fluconazole (3) Septic shock: Code(s): A41.9 - Sepsis, unspecified organism; R65.21 - Severe sepsis with septic shock Status: Acute Assessment and Plan: * Resolved (4) Pyuria: Code(s): R82.81 - Pyuria Status: Acute Assessment and Plan: * Negative culture * NO UTI (5) Acute renal failure: Qualifiers: Acute renal failure type: unspecified Qualified Code(s): N17.9 - Acute kidney failure, unspecified Code(s): N17.9 - Acute kidney failure, unspecified Status: Acute Assessment and Plan: * Likely due to ATN from septic shock. * 5/2 creatinine 1.2 (6) Atrial flutter: Qualifiers: Atrial flutter type: unspecified Qualified Code(s): I48.92 - Unspecified atrial flutter Code(s): I48.92 - Unspecified atrial flutter Status: Acute Assessment and Plan: * Resolved with treatment of sepsis (7) Hypernatremia: Code(s): E87.0 - Hyperosmolality and hypernatremia Status: Acute Assessment and Plan: * Due to poor oral intake * IVF * F/u lab (8) Hypokalemia: Code(s): E87.6 - Hypokalemia Status: Acute Assessment and Plan: * Due to poor oral intake * Supplement * F/u lab (9) Hypomagnesemia: Code(s): E83.42 - Hypomagnesemia Status: Acute Assessment and Plan: * Due to poor oral intake * Supplement * F/u lab (10) Hypophosphatemia: Code(s): E83.39 - Other disorders of phosphorus metabolism Status: Acute Assessment and Plan: * Due to poor oral intake * Supplement * F/u lab Subjective Date/time seen: 06/24/19 15:02 Interval history: 74-year-old halfway resident admitted with pneumonia and respiratory failure. COVID-19 positive. C/o mouth sore. RN observed white deposits on tongue. Review of Systems 2 Review of Systems: ROS unobtainable: Yes unobtainable due to mental status Exam Narrative: Exam Narrative: Exam Narrative: HEENT: EOMI, PERRL, sclerae nonicteric, PATIENT REFUSED TO COOPERATE WITH ORAL EXAM NECK: No JVD CHEST: Clear breath sounds Normal effort. HEART: NL S1/S2, regular, no murmur ABDOMEN: BS+, soft, nontender, no mass, no bruits EXTREMITIES: No cyanosis, edema, or clubbing NEUROLOGIC: CN intact and symmetric to inspection. MUSCULOSKELETAL: Tone and strength symmetric. PSYCH: Alert. Oriented to person only Objective Data Vital Signs Vital Signs: Vital Signs - 24 hr 06/23/19 18:00 06/23/19 22:00 06/24/19 02:00 Temperature 98.5 F 98.2 F 98.2 F Pulse Rate 88 84 83 Respiratory Rate 20 18 20 Blood Pressure 155/82 H 167/87 H 154/93 H Pulse Oximetry 95 99 98 06/24/19 06:00 06/24/19 10:00 06/24/19 13:59 Temperature 97.8 F 98.0 F 98.3 F Pulse Rate 86 88 85 Respiratory Rate 20 20 2
--- NOTE | 2019-06-24 15:02 | PM.IMPN ---
Progress Note: A&P Assessment and Plan (1) Pneumonia due to COVID-19 virus: Code(s): U07.1 - COVID-19; J12.89 - Other viral pneumonia Status: Acute Assessment and Plan: Continue Rocephin and doxycycline Continue supportive care 5/3 on room air Return to [place] when she demonstrates ability to maintain adequate nutrition (2) Thrush, oral: Code(s): B37.0 - Candidal stomatitis Status: Acute Assessment and Plan: Presumptive dx based on train brakeman IV fluconazole (3) Septic shock: Code(s): A41.9 - Sepsis, unspecified organism; R65.21 - Severe sepsis with septic shock Status: Acute Assessment and Plan: Resolved (4) Pyuria: Code(s): R82.81 - Pyuria Status: Acute Assessment and Plan: Negative culture NO UTI (5) Acute renal failure: Qualifiers: Acute renal failure type: unspecified Qualified Code(s): N17.9 - Acute kidney failure, unspecified Code(s): N17.9 - Acute kidney failure, unspecified Status: Acute Assessment and Plan: Likely due to ATN from septic shock. 5/2 creatinine 1.2 (6) Atrial flutter: Qualifiers: Atrial flutter type: unspecified Qualified Code(s): I48.92 - Unspecified atrial flutter Code(s): I48.92 - Unspecified atrial flutter Status: Acute Assessment and Plan: Resolved with treatment of sepsis (7) Hypernatremia: Code(s): E87.0 - Hyperosmolality and hypernatremia Status: Acute Assessment and Plan: Due to poor oral intake IVF F/u lab (8) Hypokalemia: Code(s): E87.6 - Hypokalemia Status: Acute Assessment and Plan: Due to poor oral intake Supplement F/u lab (9) Hypomagnesemia: Code(s): E83.42 - Hypomagnesemia Status: Acute Assessment and Plan: Due to poor oral intake Supplement F/u lab (10) Hypophosphatemia: Code(s): E83.39 - Other disorders of phosphorus metabolism Status: Acute Assessment and Plan: Due to poor oral intake Supplement F/u lab Subjective Date/time seen: 06/24/19 15:02 Interval history: 74-year-old [place] [facility] resident admitted with pneumonia and respiratory failure. COVID-19 positive. C/o mouth sore. RN observed white deposits on tongue. Review of Systems Review of Systems: ROS unobtainable: Yes unobtainable due to mental status Exam Narrative: Exam Narrative: Exam Narrative: HEENT: EOMI, PERRL, sclerae nonicteric, PATIENT REFUSED TO COOPERATE WITH ORAL EXAM NECK: No JVD CHEST: Clear breath sounds Normal effort. HEART: NL S1/S2, regular, no murmur ABDOMEN: BS+, soft, nontender, no mass, no bruits EXTREMITIES: No cyanosis, edema, or clubbing NEUROLOGIC: CN intact and symmetric to inspection. MUSCULOSKELETAL: Tone and strength symmetric. PSYCH: Alert. Oriented to person only Objective Data Vital Signs Vital Signs: Vital Signs - 24 hr 06/23/19 18:00 06/23/19 22:00 06/24/19 02:00 Temperature 98.5 F 98.2 F 98.2 F Pulse Rate 88 84 83 Respiratory Rate 20 18 20 Blood Pressure 155/82 H 167/87 H 154/93 H Pulse Oximetry 95 99 98 06/24/19 06:00 06/24/19 10:00 06/24/19 13:59 Temperature 97.8 F 98.0 F 98.3 F Pulse Rate 86 88 85 Respiratory Rate 20 20 20 Blood Pressure 157/85 H 160/90 H 155/92 H Pulse Oximetry 93 95 93 Intake/Output Intake/Output: Intake & Output 06/21/19 06/22/19 06/23/19 06/24/19 23:59 23:59 23:59 23:59 Intake Total 3100 3188 1250 730 Output Total 1082 1150 1000 Balance 3100 2106 100 -270 Meds/Results Medications: Active Medications Generic Name Dose Route Start Last Admin Trade Name Freq PRN Reason Stop Dose Admin Dextrose 12.5 gm 06/21/19 23:33 Dextrose 50% Syringe IV PUSH PRN PRN Hypoglycemia Protocol Enoxaparin Sodium 30 mg 06/22/19 10:35 06/24/19 09:12 Lovenox SUB-Q 30 mg DAILY JELANI Administration Glucagon 1 mg 06/21/19 23:33
[2019-06-24] MEDS: MAGNESIUM SULF 1 GM/D5W 100 ML 1 GM/100 ML BAG IVPB (15:43)
[2019-06-24] MEDS: SODIUM CHLORIDE 0.9% IV 1,000 ML 50 ML IV CONT (16:53)
[2019-06-24 18:00] VITALS: BP 136/66; PULSE 90; RESP 20; TEMP 37.3; O2SAT 97
[2019-06-24 18:17] LABS: Glucose Point of Care 231 (65-105)
[2019-06-24 19:21] LABS: Blood Urea Nitrogen 22 mg/dL (7-17); Calcium 7.9 mg/dL (8.4-10.2); Carbon Dioxide 21 mmol/L (22-30); Chloride 118 mmol/L (98-107); Estimated CRCL calculation 55 ml/min; Estimated Glomerular Filt Rate > 60; Glucose 232 mg/dL (65-105); Magnesium 1.8 mg/dL (1.6-2.3); Phosphorus 2.9 mg/dL (2.5-4.5); Potassium 3.7 mmol/L (3.4-5.0); Sodium 146 mmol/L (137-145)
[2019-06-24 21:13] LABS: Glucose Point of Care 218 (65-105)
[2019-06-24 22:00] VITALS: BP 148/90; PULSE 77; RESP 18; TEMP 37.2; O2SAT 100
[2019-06-25 02:00] VITALS: BP 146/81; PULSE 69; RESP 18; TEMP 36.9; O2SAT 99
[2019-06-25 06:00] VITALS: BP 155/58; PULSE 67; RESP 18; TEMP 36.6; O2SAT 100
[2019-06-25 06:12] LABS: Blood Urea Nitrogen 18 mg/dL (7-17); Calcium 7.9 mg/dL (8.4-10.2); Carbon Dioxide 23 mmol/L (22-30); Chloride 118 mmol/L (98-107); Estimated CRCL calculation 63 ml/min; Estimated Glomerular Filt Rate > 60; Glucose 140 mg/dL (65-105); Hematocrit 33.9 % (37.0-47.0); Hemoglobin 10.7 g/dL (12.0-15.0); Magnesium 1.6 mg/dL (1.6-2.3); Mean Corpuscular HGB Conc 31.6 g/dl (32-36); Mean Corpuscular Volume 91.9 fl (80-100); Mean Platelet Volume 12.5 fl (7.4-10.4); Phosphorus 2.7 mg/dL (2.5-4.5); Platelet Count Result 213 k/mm3 (150-375); Potassium 3.3 mmol/L (3.4-5.0); Red Blood Count 3.69 M/mm3 (4.2-5.4); Red Cell Distribution Width 14.7 % (11.5-14.5); Sodium 144 mmol/L (137-145); White Blood Count 9.7 K/mm3 (4.5-10.0)
[2019-06-25] MEDS: LEVOTHYROXINE SODIUM INJ 100 MCG/5 ML VIAL 75 MCG IV PUSH (06:30)
[2019-06-25 08:30] VITALS: O2SAT 95
[2019-06-25] MEDS: POTASSIUM CHLORIDE 20 MEQ PACKET (FOR LIQUID) PO (09:15)
[2019-06-25] MEDS: ENOXAPARIN 30 MG/0.3 ML SYRINGE SUB-Q (09:15)
--- NOTE | 2019-06-25 09:48 | PM.IMPN ---
Subjective Date/time seen: 06/25/19 09:48 Objective Data Vital Signs Vital Signs: Vital Signs - 24 hr 06/24/19 10:00 06/24/19 13:59 06/24/19 18:00 Temperature 98.0 F 98.3 F 99.2 F Pulse Rate 88 85 90 Respiratory Rate 20 20 20 Blood Pressure 160/90 H 155/92 H 136/66 Pulse Oximetry 95 93 97 06/24/19 22:00 06/25/19 02:00 06/25/19 06:00 Temperature 98.9 F 98.5 F 97.8 F Pulse Rate 77 69 67 Respiratory Rate 18 18 18 Blood Pressure 148/90 H 146/81 H 155/58 H Pulse Oximetry 100 99 100 06/25/19 08:30 Temperature Pulse Rate Respiratory Rate Blood Pressure Pulse Oximetry 95 Intake/Output Intake/Output: Intake & Output 06/22/19 06/23/19 06/24/19 06/25/19 23:59 23:59 23:59 23:59 Intake Total 3188 1250 2617 Output Total 1082 1150 1000 750 Balance 2106 100 1617 -750 Meds/Results Medications: Active Medications Generic Name Dose Route Start Last Admin Trade Name Freq PRN Reason Stop Dose Admin Dextrose 12.5 gm 06/21/19 23:33 Dextrose 50% Syringe IV PUSH PRN PRN Hypoglycemia Protocol Enoxaparin Sodium 30 mg 06/22/19 10:35 06/24/19 09:12 Lovenox SUB-Q 30 mg DAILY JELANI Administration Glucagon 1 mg 06/21/19 23:33 Glucagon For Inj IM PRN PRN Hypoglycemia Protocol Glucose 15 gm 06/21/19 23:33 Glutose 15 PO PRN PRN Hypoglycemia Protocol Doxycycline Hyclate 100 mg/ 100 mls @ 100 mls/hr 06/21/19 23:30 06/24/19 21:10 Dextrose IVPB 100 mls/hr Q12HR JELANI Administration Dextrose 1,000 mls @ 100 mls/hr 06/21/19 23:33 Dextrose 5% 1,000 Ml IVPB PRN PRN Hypoglycemia Protocol Sodium Chloride 1,000 mls @ 50 mls/hr 06/22/19 04:40 06/24/19 16:53 Normal Saline Iv IV CONT 50 mls/hr .Q20H JELANI Administration Ceftriaxone Sodium/Dextrose 1 gm in 50 mls @ 100 mls/hr 06/23/19 17:00 06/24/19 18:10 Rocephin 1 Gm/D5w 50 Ml IVPB Infused Q24H [facility] Infusion Fluconazole/Dextrose 100 mg in 50 mls @ 50 mls/hr 06/24/19 13:50 06/24/19 17:55 Diflucan 100 Mg/D5w 50 Ml IVPB Infused DAILY JELANI Infusion Insulin Aspart 2 - 5 units 06/25/19 08:00 Novolog SUB-Q TIDWM [facility] Protocol Levothyroxine Sodium 75 mcg 06/22/19 06:30 06/25/19 06:30 Synthroid Inj IV PUSH 75 mcg DAILY@0630 [facility] Administration Radiology Results: ITS Impressions Head CT 06/21/19 17:14 IMPRESSION: 1. No acute intracranial abnormality. 2: Chronic age-related findings. Chest X-Ray 06/25/19 07:13 IMPRESSION: 1. Unchanged mild scattered bilateral airspace disease most likely related to pneumonia Labs Labs: Laboratory Results - last 24 hr 06/24/19 06/24/19 06/24/19 11:56 17:46 19:05 WBC RBC Hgb Hct MCV MCH MCHC RDW Plt Count MPV Sodium 146 H Potassium 3.7 Chloride 118 H Carbon Dioxide 21 L BUN 22 H Creatinine 0.80 Estim Creat Clear Calc 55 Estimated GFR > 60 Glucose 232 H POC Capillary Glucose 234 H 231 H Calcium 7.9 L Phosphorus 2.9 Magnesium 1.8 06/24/19 06/25/19 06/25/19 21:00 05:50 05:50 WBC 9.7 RBC 3.69 L Hgb 10.7 L Hct 33.9 L MCV 91.9 MCH 29.0 MCHC 31.6 L RDW 14.7 H Plt Count 213 MPV 12.5 H Sodium 144 Potassium 3.3 L Chloride 118 H Carbon Dioxide 23 BUN 18 H Creatinine 0.70 Estim Creat Clear Calc 63 Estimated GFR > 60 Glucose 140 H POC Capillary Glucose 218 H Calcium 7.9 L Phosphorus 2.7 Magnesium 1.6 Quality VTE Prophylaxis VTE prophylaxis: mechanical ordered (SCDs)
[2019-06-25 10:00] VITALS: BP 144/59; PULSE 96; RESP 18; TEMP 36.3; O2SAT 100
[2019-06-25 10:19] LABS: Glucose Point of Care 197 (65-105)
[2019-06-25] MEDS: INSULIN ASPART (*BKC) 100 UNITS/ML SUB-Q (12:56)
[2019-06-25 13:05] LABS: Glucose Point of Care 221 (65-105)
[2019-06-25 14:00] VITALS: BP 158/81; PULSE 70; RESP 18; TEMP 36.6; O2SAT 94
--- NOTE | 2019-06-25 14:08 | P.DS_ITS ---
DS: Diagnosis Admitting Diagnosis Admitting Diagnosis: COVID-19 Discharge Diagnosis (1) Pneumonia due to COVID-19 virus: Code(s): U07.1 - COVID-19; J12.89 - Other viral pneumonia Status: Acute Assessment and Plan: * Continue Rocephin and doxycycline * Continue supportive care * 5/3 on room air * Return to [place] when she demonstrates ability to maintain adequate nutrition (2) Thrush, oral: Code(s): B37.0 - Candidal stomatitis Status: Acute Assessment and Plan: * Presumptive dx based on cafeteria attendant * IV fluconazole (3) Septic shock: Code(s): A41.9 - Sepsis, unspecified organism; R65.21 - Severe sepsis with septic shock Status: Acute Assessment and Plan: * Resolved (4) Pyuria: Code(s): R82.81 - Pyuria Status: Acute Assessment and Plan: * Negative culture * NO UTI (5) Acute renal failure: Qualifiers: Acute renal failure type: unspecified Qualified Code(s): N17.9 - Acute kidney failure, unspecified Code(s): N17.9 - Acute kidney failure, unspecified Status: Acute Assessment and Plan: * Likely due to ATN from septic shock. * 5/2 creatinine 1.2 (6) Atrial flutter: Qualifiers: Atrial flutter type: unspecified Qualified Code(s): I48.92 - Unspecified atrial flutter Code(s): I48.92 - Unspecified atrial flutter Status: Acute Assessment and Plan: * Resolved with treatment of sepsis (7) Hypernatremia: Code(s): E87.0 - Hyperosmolality and hypernatremia Status: Acute Assessment and Plan: * Due to poor oral intake * IVF * F/u lab (8) Hypokalemia: Code(s): E87.6 - Hypokalemia Status: Acute Assessment and Plan: * Due to poor oral intake * Supplement * F/u lab (9) Hypomagnesemia: Code(s): E83.42 - Hypomagnesemia Status: Acute Assessment and Plan: * Due to poor oral intake * Supplement * F/u lab (10) Hypophosphatemia: Code(s): E83.39 - Other disorders of phosphorus metabolism Status: Acute Assessment and Plan: * Due to poor oral intake * Supplement * F/u lab DS: Summary Time Spent with Patient Time attestation: Total time spent providing and/or coordinating discharge services: Exam Narrative: Exam Narrative: HEENT: EOMI, PERRL, sclerae nonicteric, mild erythema of tongue today but no plaque NECK: No JVD CHEST: Clear breath sounds Normal effort. HEART: NL S1/S2, regular, no murmur ABDOMEN: BS+, soft, nontender, no mass, no bruits EXTREMITIES: No cyanosis, edema, or clubbing NEUROLOGIC: CN intact and symmetric to inspection. MUSCULOSKELETAL: Tone and strength symmetric. PSYCH: Alert. Oriented to person only DS: Data Data Completed and Pending Labs on day of discharge: Labs from last 24 hours 06/25/19 06/25/19 06/25/19 12:52 10:13 05:50 WBC RBC Hgb Hct MCV MCH MCHC RDW Plt Count MPV Sodium 144 Potassium 3.3 L Chloride 118 H Carbon Dioxide 23 BUN 18 H Creatinine 0.70 Estim Creat Clear Calc 63 Estimated GFR > 60 Glucose 140 H POC Capillary Glucose 221 H 197 H Calcium 7.9 L Phosphorus 2.7
--- NOTE | 2019-06-25 14:08 | PM.DS ---
DS: Diagnosis Admitting Diagnosis Admitting Diagnosis: COVID-19 Discharge Diagnosis (1) Pneumonia due to COVID-19 virus: Code(s): U07.1 - COVID-19; J12.89 - Other viral pneumonia Status: Acute Assessment and Plan: Continue Rocephin and doxycycline Continue supportive care 5/3 on room air Return to [place] when she demonstrates ability to maintain adequate nutrition (2) Thrush, oral: Code(s): B37.0 - Candidal stomatitis Status: Acute Assessment and Plan: Presumptive dx based on wire machine cutter IV fluconazole (3) Septic shock: Code(s): A41.9 - Sepsis, unspecified organism; R65.21 - Severe sepsis with septic shock Status: Acute Assessment and Plan: Resolved (4) Pyuria: Code(s): R82.81 - Pyuria Status: Acute Assessment and Plan: Negative culture NO UTI (5) Acute renal failure: Qualifiers: Acute renal failure type: unspecified Qualified Code(s): N17.9 - Acute kidney failure, unspecified Code(s): N17.9 - Acute kidney failure, unspecified Status: Acute Assessment and Plan: Likely due to ATN from septic shock. 5/2 creatinine 1.2 (6) Atrial flutter: Qualifiers: Atrial flutter type: unspecified Qualified Code(s): I48.92 - Unspecified atrial flutter Code(s): I48.92 - Unspecified atrial flutter Status: Acute Assessment and Plan: Resolved with treatment of sepsis (7) Hypernatremia: Code(s): E87.0 - Hyperosmolality and hypernatremia Status: Acute Assessment and Plan: Due to poor oral intake IVF F/u lab (8) Hypokalemia: Code(s): E87.6 - Hypokalemia Status: Acute Assessment and Plan: Due to poor oral intake Supplement F/u lab (9) Hypomagnesemia: Code(s): E83.42 - Hypomagnesemia Status: Acute Assessment and Plan: Due to poor oral intake Supplement F/u lab (10) Hypophosphatemia: Code(s): E83.39 - Other disorders of phosphorus metabolism Status: Acute Assessment and Plan: Due to poor oral intake Supplement F/u lab DS: Summary Time Spent with Patient Time attestation: Total time spent providing and/or coordinating discharge services: Exam Narrative: Exam Narrative: HEENT: EOMI, PERRL, sclerae nonicteric, mild erythema of tongue today but no plaque NECK: No JVD CHEST: Clear breath sounds Normal effort. HEART: NL S1/S2, regular, no murmur ABDOMEN: BS+, soft, nontender, no mass, no bruits EXTREMITIES: No cyanosis, edema, or clubbing NEUROLOGIC: CN intact and symmetric to inspection. MUSCULOSKELETAL: Tone and strength symmetric. PSYCH: Alert. Oriented to person only DS: Data Data Completed and Pending Labs on day of discharge: Labs from last 24 hours 06/25/19 06/25/19 06/25/19 12:52 10:13 05:50 WBC RBC Hgb Hct MCV MCH MCHC RDW Plt Count MPV Sodium 144 Potassium 3.3 L Chloride 118 H Carbon Dioxide 23 BUN 18 H Creatinine 0.70 Estim Creat Clear Calc 63 Estimated GFR > 60 Glucose 140 H POC Capillary Glucose 221 H 197 H Calcium 7.9 L Phosphorus 2.7 Magnesium 1.6 06/25/19 06/24/19 06/24/19 05:50 21:00 19:05 WBC 9.7 RBC 3.69 L Hgb 10.7 L Hct 33.9 L MCV 91.9 MCH 29.0 MCHC 31.6 L RDW 14.7 H Plt Count 213 MPV 12.5 H Sodium 146 H Potassium 3.7 Chloride 118 H Carbon Dioxide 21 L BUN 22 H Creatinine 0.80 Estim Creat Clear Calc 55 Estimated GFR > 60 Glucose 232 H POC Capillary Glucose 218 H Calcium 7.9 L Phosphorus 2.9 Magnesium 1.8 06/24/19 17:46 WBC RBC Hgb Hct MCV MCH MCHC RDW Plt Count MPV Sodium Potassium Chloride Carbon Dioxide BUN Creatinine Estim Creat Clear Calc Estimated GFR Glucose POC Capillary Glucose 231 H Calcium Phosphorus Magnesium
== END 2019-06-25 16:30 | DRG 871 ==
LOC: ANHED 22:26 → ANHICU 23:38 → ANH3MEDSUR 06-23 23:34 → ANHICU 06-27 14:59
PROVIDERS: Internal Medicine; Admitting Provider Internal Medicine; Emergency Provider Emergency Medicine; PCP Family Medicine; Visit Provider Internal Medicine
DX: A41.89 Other specified sepsis (principal); U07.1 COVID-19; J12.89 Other viral pneumonia; R65.21 Severe sepsis with septic shock; N17.0 Acute kidney failure with tubular necrosis; B37.0 Candidal stomatitis; I48.92 Unspecified atrial flutter; E87.0 Hyperosmolality and hypernatremia; R82.81 Pyuria; E87.6 Hypokalemia; E83.42 Hypomagnesemia; E83.39 Other disorders of phosphorus metabolism; F03.90 Unspecified dementia, unspecified severity, without behavioral disturbance, psychotic disturbance, mood disturbance, and anxiety; E11.9 Type 2 diabetes mellitus without complications; K21.9 Gastro-esophageal reflux disease without esophagitis; I10 Essential (primary) hypertension; E03.9 Hypothyroidism, unspecified; I25.10 Atherosclerotic heart disease of native coronary artery without angina pectoris; E78.5 Hyperlipidemia, unspecified; M06.9 Rheumatoid arthritis, unspecified; E55.9 Vitamin D deficiency, unspecified; I44.0 Atrioventricular block, first degree; Z86.73 Personal history of transient ischemic attack (TIA), and cerebral infarction without residual deficits; Z87.891 Personal history of nicotine dependence; Z85.42 Personal history of malignant neoplasm of other parts of uterus; Z90.710 Acquired absence of both cervix and uterus
CPT/HCPCS: 36415; 36556; 36600; 51701; 70450; 71045; 80048; 80053; 81001; 82375; 82728; 82805; 82948; 83050; 83605; 83615; 83735; 84100; 84443; 85025; 85027; 85380; 86140; 87040; 87086; 87635; 92610; 93005; 96361; 96365; 96366; 96375; 99291; A9270; C1751; J0696; J1450; J1650; J1815; J2060; J3475; J3480; J7030; J7040; J7050; U0003

== ENCOUNTER 2021-03-06 22:55 | Inpatient (IN) | payer MEDICARE, MEDICAID, SELFPAY ==
--- NOTE | ~2021-03-06 | XR_ITS ---
XR chest 1V portable 03/08/2021 06:15 Indication: Respiratory failure Procedure: AP portable chest Comparison: Comparison to multiple prior studies sequentially, with oldest reviewed study dated 04/2019. Findings: Heart size normal. PICC line tip in the SVC, curved near the end, possibly in the azygos ve in. Left basilar airspace disease. No pleural effusion or pneumothorax. Impression: 1: Persistent left basilar airspace disease which may represent atelectasis and/or pneumonia. Reviewed, dictated and finalized at location A. NGER Impression: 1: Persistent left basilar airspace disease which may represent atelectasis and /or pneumonia.
--- NOTE | ~2021-03-06 | XR_ITS ---
XR abdomen NG/feed tube insert INDICATION: Evaluate G-tube position. TECHNIQUE: Limited KUB perform for evaluating NG tube . COMPARISON: No prior studies for comparison. FINDINGS: NG tube tip in the stomach. Visualized bowel gas pattern is unremarkable.There is right ba silar airspace disease which may represent atelectasis or pneumonia. IMPRESSION: 1: NG tube tip in the stomach, side-port near the expected location of the GE junction. 2: Right basilar airspace disease, atelectasis versus pneumonia. Reviewed, dictated and finalized at location A. T END LOADER OPERATOR
--- NOTE | ~2021-03-06 | XR_ITS ---
XR chest PICC line 03/07/2021 12:34 Indication: PICC line placement Procedure: AP portable chest Comparison: Comparison to multiple prior studies sequentially, with oldest reviewed study dated 03/2019. Findings: PICC line tip in the SVC near the cavoatrial junction. Elevated right diaphragm which appea rs chronic. Right basilar atelectasis. No significant effusion or pneumothorax. No acute osseous abno rmality. Impression: 1: Right basilar atelectasis with chronic elevation of the right diaphragm. Reviewed, dictated and finalized at location A. ST SCIENTIFIC Impression: 1: Right basilar atelectasis with chronic elevation of the right diaphragm.
--- NOTE | ~2021-03-06 | CT_ITS ---
EXAMINATION: CT brain wo con INDICATION: Altered mental status COMPARISON: 06/21/2019 TECHNIQUE: Standard unenhanced head CT. The dose-length product (DLP) was 605.33 mGy-cm. The mA was a djusted according to patient size. Iterative reconstruction technique was employed. FINDINGS: There is no acute intraparenchymal hemorrhage. No evidence of mass lesion. No evidence of a cute infarction. There is mild periventricular and subcortical hypodensity probably related to small vessel ischemic disease. There is mild prominence of the sulci and ventricles related to cerebral atr ophy. Intracranial calcified cerebral atherosclerosis is noted. There are no extra-axial collections. There is no mass effect or midline shift. Changes in the globes are likely from ocular lens surgery. The visualized sinuses and mastoid air cells are well aerated. IMPRESSION: 1. No acute intracranial abnormality. 2. Age related findings. Reviewed, dictated and finalized at location F. ACTOR PLANT OPERATOR
--- NOTE | ~2021-03-06 | CT_ITS ---
EXAMINATION: CT chest abdomen pelvis wo con DATE: 03/07/2021 14:20 POT BUILDER INDICATION: Chest and abdomen pain TECHNIQUE: Computed tomography (CT) of the chest, abdomen, and pelvis was performed without intraveno us contrast. The dose-length product was 1276.06 mGy-cm. Automated exposure control and iterative rec onstruction technique were employed. COMPARISON: None FINDINGS: CHEST CT: There is bilateral lower lobe airspace disease, right greater than left which may represent atelectas is and/or pneumonia. No endobronchial lesions. There is atherosclerosis of the aorta and coronary art eries. There is calcification of the aortic valve. Mild atherosclerosis of the aorta without aneurysm . No pneumothorax. No suspicious pulmonary nodules or masses. There is advanced degenerative change o f the right shoulder and to a lesser degree the left shoulder. There is moderate lumbar spondylosis. ABDOMEN/PELVIS CT: Status post cholecystectomy. The liver, spleen, pancreas, and kidneys are unremarkable. There is nodu lar thickening of the adrenal glands, likely benign hyperplasia. Status post hysterectomy. There is g as in the bladder, suspicious for cystitis. There is possible gas in the bladder wall, suspicious for emphysematous cystitis. There is mild perivesical fatty infiltration. 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 IMPRESSION: 1. Abnormal gas in the bladder lumen and possibly the bladder wall, suspicious for emphysematous cyst itis. 2: Bilateral lower lobe airspace disease which may represent atelectasis and/or pneumonia. Findings discussed with Dr. Rowan in the emergency room on 03/07/[address] Chen. Reviewed, dictated and finalized at location A. BUILDER IMPRESSION: 1. Abnormal gas in the bladder lumen and possibly the bladder wall, suspicious for emphysematous cystitis. 2: Bilateral lower lobe airspace disease which may represent atelectasis and/o r pneumonia. Findings discussed with Dr. Rowan in the emergency room on 03/07/[address] Chen.
--- NOTE | ~2021-03-06 | XR_ITS ---
EXAMINATION: XR chest 1V portable INDICATION: Altered mental status, shortness of breath TECHNIQUE: Portable AP chest at 2317 hours COMPARISON: 06/25/2019 FINDINGS: There is mild elevation of the right hemidiaphragm. Patchy opacities are present in the manohar g bases. No pleural effusion or pneumothorax is identified. The cardiomediastinal silhouette is stabl e. There is advanced osteoarthritis of the right glenohumeral joint. Surgical clips in the right uppe r quadrant are likely from prior cholecystectomy. IMPRESSION: 1. Bibasilar airspace opacities, consistent with atelectasis versus pneumonia. Reviewed, dictated and finalized at location F. NKLING SYSTEM IRRIGATOR
--- NOTE | ~2021-03-06 | US_ITS ---
EXAMINATION:US venous doppler LE LT INDICATION:Left leg swelling TECHNIQUE: Multiple grayscale, color flow and Doppler images of the left lower extremity deep venous systems were obtained and reviewed. COMPARISON:No prior studies for comparison. FINDINGS: There is extensive deep venous thrombosis throughout the left lower extremity veins includi ng the common femoral, profunda femoral, femoral, popliteal, posterior tibial, peroneal, gastrocnemiu s and greater saphenous veins. IMPRESSION: 1: Extensive deep venous thrombosis of the left lower extremity veins. Reviewed, dictated and finalized at location A. FACTURING ENGINEER CHIEF
[2021-03-06 22:55] VITALS: BP 135/74; PULSE 91; RESP 22; TEMP 36; O2SAT 95
--- NOTE | 2021-03-06 23:20 | ECG_ITS ---
Measurements Intervals [place] Rate: 88 P: 85 KS: 203 QRS: -44 QRSD: 133 T: 41 QT: 398 QTc: 484 Interpretive Statements SINUS RHYTHM BORDERLINE AV CONDUCTION DELAY RIGHT BUNDLE BRANCH BLOCK BASELINE WANDER- AVR, AVF ABNORMAL ECG Electronically Signed On 03-07-2021 5:55:23 ICT PROGRAMMER by Bryan Cole D.O.
[2021-03-06 23:31] VITALS: BP 124/72; PULSE 85; RESP 23; O2SAT 95
[2021-03-06 23:31] LABS: Basophils Absolute Auto 0.1 K/mm3 (0.0-0.1); Basophils Percent Auto 0.4 % (0.2-1.2); Eosinophils Percent Auto 0.1 % (0-4.4); Hematocrit 41.3 % (37.0-47.0); Hemoglobin 13.1 g/dL (12.0-15.0); Immature Granulocyte Percent A 1.2 % (0-0.5); Lymphocytes Absolute Auto 1.31 K/mm3 (0.9-3.2); Mean Corpuscular HGB Conc 31.7 g/dl (32-36); Mean Corpuscular Hemoglobin 31.1 pg (26-34); Mean Corpuscular Volume 98.1 fl (80-100); Monocytes Absolute Auto 0.7 K/mm3 (0.1-0.6); Monocytes Percent Auto 4.3 % (2.6-8.5); Neutrophils Absolute Auto 14.1 K/mm3 (1.3-6.7); Nucleated Red Blood Cells Perc 0.2 % (0.0-0.2); Platelet Count Result 156 k/mm3 (150-375); Red Blood Count 4.21 M/mm3 (4.2-5.4); Red Cell Distribution Width 16.2 % (11.5-14.5); White Blood Count 16.4 K/mm3 (4.5-10.0)
[2021-03-06 23:32] VITALS: PULSE 88; RESP 25; O2SAT 95
[2021-03-06 23:40] LABS: Alveolar/Arterial O2 Gradient 87.8 mmHg; HCO3 ABG 22.1 mEq/l (22.0-26.0); Oxygen Saturation ABG 94.2 % (95.0-100.0); PCO2 ABG 35.9 mmHg (35.0-45.0); PO2 ABG 69.5 mmHg (80.0-100.0); Total Hemoglobin 12.7 g/dL (12.0-18.0); pH ABG 7.408 (7.350-7.450)
[2021-03-06 23:41] LABS: Fractional Inspired Oxygen 28 %; Modified Allen's Test Pass; Oxygen Content ABG 16.5 %vol (16.0-22.0); Oxyhemoglobin 92.1 % THb (90.0-100.0); PO2 FiO2 Ratio Arterial Blood 2.48 %; Site Drawn LEFT RADIAL
[2021-03-06 23:42] LABS: Device NASAL CANNULA
[2021-03-06 23:46] VITALS: BP 135/71; PULSE 85; RESP 20; O2SAT 96
[2021-03-06 23:46] LABS: INR 1.2; Prothrombin Time 14.6 Seconds (11.1-14.7)
[2021-03-06 23:47] VITALS: PULSE 84; RESP 17; O2SAT 95
[2021-03-06 23:47] LABS: Partial Thromboplastin Time 20.8 SECONDS (22.3-36.8)
[2021-03-06 23:50] LABS: Beta-Hydroxybutyrate/Acetoacetate 0.59 mmol/L (0.02-0.27)
[2021-03-07] VITALS (33 sets, daily range): BP systolic 74–158; BP diastolic 24–95; PULSE 46–96; RESP 15–27; TEMP 36.7–37.2; O2SAT 95–100; BMI 29.2
[2021-03-07 00:17] LABS: SARS-CoV-2 RNA PCR Negative
[2021-03-07] MEDS: SODIUM CHLORIDE 0.9% IV 1,000 ML 999 ML IV CONT ×4 (00:18→08:23)
--- NOTE | 2021-03-07 01:02 | PC.NURSE ---
3 RN mult attempt at taylor catheter unsuccessful.
[2021-03-07 01:08] LABS: Alanine Aminotransferase 17 U/L (4-35); Albumin Level 3.5 g/dL (3.5-5.1); Alkaline Phosphatase 148 U/L (38-126); Anion Gap 10 mmol/L (8-16); Aspartate Amino Transferase 30 U/L (14-36); Bilirubin,Total 1.2 mg/dL (0.2-1.3); Blood Urea Nitrogen 52 mg/dL (7-17); Calcium 8.1 mg/dL (8.4-10.2); Carbon Dioxide 25 mmol/L (22-30); Chloride 105 mmol/L (98-107); Estimated Glomerular Filt Rate 37; Glucose 823 mg/dL (65-110); Lipase 170 U/L (23-300); Magnesium 2.4 mg/dL (1.6-2.3); NT Pro B Type Natriuretic Pept 1210 pg/mL (5-100); Potassium 4.5 mmol/L (3.4-5.0); Sodium 140 mmol/L (137-145); Troponin I 0.047 ng/mL (0.000-0.034)
[2021-03-07] MEDS: INSULIN HUMAN REGULAR (*BKC) 100 UNITS in SODIUM CHLORIDE 0.9% IV 99 ML 15.3 UNITS IV CONT (01:37)
[2021-03-07 02:25] LABS: Reflex Lactic Acid Yes or No Add Lactic
--- NOTE | 2021-03-07 02:33 | ED.GENADULT ---
HPI - General Adult General Chief complaint: Recheck/Abnormal Lab/Rx Stated complaint: decreased mental status; RA pul ox in 80s Time Seen by Provider: 03/06/21 23:01 History of Present Illness HPI narrative: Patient 75-year-old female who presents the emergency department with chief complaint of altered mental status and elevated blood sugar. Patient was sent from a local skilled nursing after she had decreased responsive to this today patient may have aspirated earlier and was found with broccoli dried to her mouth. Patient also had a episode of choking while she was eating lunch and EMS noticed that her blood sugars were extremely elevated and reading high in the field. History is limited due to altered mental status Related Data Home Medications Medication Instructions Recorded Confirmed aspirin [Aspirin Low Dose] 81 mg PO DAILY 06/21/19 06/22/19 atorvastatin 20 mg PO DAILY 06/21/19 06/22/19 levothyroxine 137 mcg PO DAILY 06/21/19 06/22/19 Allergies Allergy/AdvReac Type Severity Reaction Status Date / Time codeine AdvReac Mild NAUSEA Verified 03/06/21 23:10 Review of Systems Review of Systems: A 10 system review of systems was completed on the patient and is negative except for what is stated in the HPI. Nursing and ancillary documentation was reviewed. 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 Aisha Mata Code status: Full code Smoking status: Former smoker Tobacco type: cigarettes Smoking end date: 06/21/14 Alcohol intake: never Substance use: never Additional living arrangements comments: [facility]. Gender identity (if verbalized by the patient): Female Spiritual care concerns: No Agree to blood products: Yes Exam Narrative: GENERAL: ill-appearing, well-nourished, and in no acute distress. HEAD: Normocephalic, atraumatic. EYES: PERRLA and EOMI. ENT: Nares clear, no rhinorrhea or epistaxis. Mucous membranes extremely dry. NECK: Supple. CHEST: Clear to auscultation. No respiratory distress. HEART: Regular rate and rhythm. No murmur heard. Normal peripheral pulses. ABDOMEN: Soft, nontender, nondistended, normal active bowel sounds. EXTREMITIES: Normal range of motion. No edema. SKIN: Warm, dry, no rash. NEURO: No focal deficits. Opens eyes to verbal stimulation. PSYCH: Unable to obtain. Course Vital Signs Vital signs: Vital Signs Temperature 36.0 C L 03/06/21 22:55 Pulse Rate 91 03/06/21 22:55 Respiratory Rate 22 H 03/06/21 22:55 Blood Pressure 135/74 03/06/21 22:55 Pulse Oximetry 95 03/06/21 22:55 Temperature 36.0 C L 03/06/21 22:55 Pulse Rate 82 03/07/21 01:32 Respiratory Rate 24 H 03/07/21 01:32 Blood Pressure 106/86 03/07/21 01:31 Pulse Oximetry 99 03/07/21 01:32 Medical Decision Making Vital Signs Vital Signs: Vital Signs Temperature 36.0 C L 03/06/21 22:55 Pulse Rate 91 03/06/21 22:55 Respiratory Rate 22 H 03/06/21 22:55 Blood Pressure 135/74 03/06/21 22:55 Pulse Oximetry 95 03/06/21 22:55 Temperature 36.0 C L 03/06/21 22
--- NOTE | 2021-03-07 02:46 | PM.IMHP ---
H&P: HPI History of Present Illness Date/Time: 03/07/21 01:30 Chief Complaint: Glucose greater than a 1000 Narrative: 75-year-old female with past medical history of advanced dementia, type 2 diabetes, hypothyroidism, and frequent UTIs who presented from [facility] via EMS due to glucoses reportedly greater than a 1000. Patient has history of CVA and dimension is alert oriented x1 at baseline. However nursing staff also reported that the patient was less responsive than usual. Source of information is ER records, EMS records and daughter report. The daughter reports that the correction staff had called her earlier in the day and told her that her mom had choked while eating lunch. On arrival to the ER the patient had broccoli dried 2 her lower dentures. The patient has upper dentures were not in place. Her mucous membranes were dried in peeling. The patient's daughter reports that the patient will occasionally know her daughter's name. And that the patient will occasionally chat with her. However today patient is only occasionally answering a question. She reports that she was recently told that her mother at pressure wound to her foot. There is a black area to the right lateral foot without any surrounding erythema. The patient has been afebrile. Daughter has not witnessed the patient having any cough. The patient is fully vaccinated against COVID-19 and received a COVID booster. The patient had COVID infection in May of 2019. In the ER nursing staff tried to place a Erazo 3 times but the Erazo catheter seem to loop out. The nursing staff felt that the patient's anatomy was abnormal. On arrival to the ICU Erazo catheter placement was attempted again at which time nursing staff noted some necrotic tissue and at the time of my repeat evaluation the tissue appears to be necrotic. The tissue was not sloughing off. The patient was urinating quite a large amount and and there was some clumps of yellowish tissue on the absorbent pads. In the ER CT scan was performed which demonstrated bronchial thickening, right middle lobe pneumonia. Stat read did not mention air in the bladder but on my review of the imaging there appeared to be pneumo cystitis. The patient received 3 L of normal saline in the ER and was placed on an insulin drip due to hyperglycemic state. Her glucoses were improving. Unfortunately, after patient arrived to the ICU the patient's blood pressures precipitously dropped. A cheetah score was obtained and demonstrated the patient was fluid responsive with 22% change. Subsequently a 4th L of fluid was ordered to run at 500 mL an hour. Despite IV fluids infusing the patient's repeat blood pressure had dropped to the 70s. We attempted the right the patient's daughter regarding placement of central line as the patient's daughter verbalized to me that she did not want her mother to have a extraordinary measures such as intubation or cardiopulmonary resuscitation. Until I could verify whether not she would want the patient have a central line if place patient on peripheral Juan-Synephrine. Given the findings of necrotic tissue in the pelvic region and dropping blood pressures I have broaden the patient's antibiotic coverage to Zosyn and vancomycin. The patient had initially been placed on Unasyn due to suspected aspiration pneumonia. 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
--- NOTE | 2021-03-07 02:50 | PC.NURSE ---
pt POC glucose checked at this time. glucometer reads HIGH
--- NOTE | 2021-03-07 03:08 | PC.NURSE ---
Per Dr. Bansal, when glucometer reads high use 500 and do not repeat BMP every hour
[2021-03-07 03:14] LABS: Lactic Acid 3.2 mmol/L (0.7-2.1)
[2021-03-07 03:44] LABS: Troponin I 0.036 ng/mL (0.000-0.034)
[2021-03-07 03:48] LABS: Anion Gap 8 mmol/L (8-16); Blood Urea Nitrogen 39 mg/dL (7-17); Calcium 5.6 mg/dL (8.4-10.2); Carbon Dioxide 14 mmol/L (22-30); Chloride 121 mmol/L (98-107); Estimated Glomerular Filt Rate > 60; Glucose 555 mg/dL (65-110); Phosphorus 2.7 mg/dL (2.5-4.5); Potassium 3.6 mmol/L (3.4-5.0); Sodium 143 mmol/L (137-145)
--- NOTE | 2021-03-07 04:20 | ADMGEN ---
This patient, Bhumi Levin, was admitted to Intensive Care Unit-5. Patient/family oriented to hospital policies and general routines including ID bracelet, bed and alarms, visiting hours, pain management, procedures, bathroom and other care routines, personal items, smoking policy, room service/diet, and visiting hours. Information on how to activate the Rapid Response Team has been discussed. Patient/Family are encouraged to report perceived risks to care and to ask questions if they do not understand what they are told or what they should do.
[2021-03-07 04:55] LABS: Hemoglobin A1C 11.8 % (<5.7)
[2021-03-07] MEDS: SODIUM CHLORIDE 0.9% IV 1,000 ML 150 ML IV CONT ×2 (04:57→07:30)
[2021-03-07] MEDS: AMPICILLIN SULB 3 GM/NS 100 ML 3 GM/100 ML VIAL IVPB (04:59)
[2021-03-07] MEDS: SODIUM CHLORIDE 0.9% IV 500 ML IV CONT (06:44)
[2021-03-07] MEDS: PIPERACILLIN/TAZOBACTAM SOD 4.5 GM in SODIUM CHLORIDE 0.9% IV 100 ML 200 ML IVPB (06:59)
--- NOTE | 2021-03-07 07:04 | PC.NURSE ---
multiple attempts to reach Daughter Araceli per pt condition and need for Central line if aggressive treatment wanted. Several messages left with no return phone call.
[2021-03-07 07:23] LABS: Basophils Absolute Auto 0.1 K/mm3 (0.0-0.1); Basophils Percent Auto 0.6 % (0.2-1.2); Eosinophils Percent Auto 0.1 % (0-4.4); Hematocrit 34.8 % (37.0-47.0); Hemoglobin 11.1 g/dL (12.0-15.0); Immature Granulocyte Absolute 0.31 K/mm3 (0.00-0.031); Immature Granulocyte Percent A 1.6 % (0-0.5); Lymphocytes Absolute Auto 3.35 K/mm3 (0.9-3.2); Lymphocytes Percent Auto 17.1 % (18.3-44.2); Mean Corpuscular HGB Conc 31.9 g/dl (32-36); Mean Corpuscular Hemoglobin 31.8 pg (26-34); Mean Corpuscular Volume 99.7 fl (80-100); Mean Platelet Volume 12.5 fl (7.4-10.4); Monocytes Absolute Auto 0.7 K/mm3 (0.1-0.6); Monocytes Percent Auto 3.6 % (2.6-8.5); Neutrophils Absolute Auto 15.1 K/mm3 (1.3-6.7); Nucleated Red Blood Cells Perc 0.2 % (0.0-0.2); Platelet Count Result 157 k/mm3 (150-375); Red Blood Count 3.49 M/mm3 (4.2-5.4); Red Cell Distribution Width 15.9 % (11.5-14.5); White Blood Count 19.6 K/mm3 (4.5-10.0)
[2021-03-07] MEDS: INSULIN HUMAN REGULAR (*BKC) 100 UNITS in SODIUM CHLORIDE 0.9% IV 99 ML 20.2 UNITS IV CONT (07:30)
[2021-03-07 07:41] LABS: Alanine Aminotransferase 17 U/L (4-35); Albumin Level 2.7 g/dL (3.5-5.1); Alkaline Phosphatase 85 U/L (38-126); Anion Gap 10 mmol/L (8-16); Aspartate Amino Transferase 28 U/L (14-36); Bilirubin,Total 0.6 mg/dL (0.2-1.3); Blood Urea Nitrogen 39 mg/dL (7-17); CRP 6.7 mg/dL (<1.0); Carbon Dioxide 21 mmol/L (22-30); Chloride 118 mmol/L (98-107); Estimated CRCL calculation 42 ml/min; Estimated Glomerular Filt Rate 48; Glucose 316 mg/dL (65-110); Potassium 3.2 mmol/L (3.4-5.0); Sodium 149 mmol/L (137-145)
[2021-03-07 07:49] LABS: Lactic Acid Reflex 4.6 mmol/L (0.7-2.1)
--- NOTE | 2021-03-07 09:01 | WPDCNINT ---
Assessment and Plan Assessment and plan (1) Septic shock: Code(s): A41.9 - Sepsis, unspecified organism; R65.21 - Severe sepsis with septic shock Status: Acute Assessment and Plan: Secondary to UTI and possibly aspiration pneumonia. Patient does have history of frequent UTIs Blood culture sent. Will send urine culture once Erazo catheter is in place in sample obtained as patient is incontinent this time Her lactic acid is still elevated hence I will give another 1 L of saline bolus Continue IV fluids Currently on Juan-Synephrine I will add dopamine as patient is fairly bradycardic Currently on vanc and Zosyn will be continued Will obtain PICC line if patient's family consents CT chest abdomen pelvis has been done and final report is pending. Prelim report from ED suggests the patient has pneumonia and right lower lobe. I spoken to CT due to technical and IT issues neither images nor reports successful at this time (2) Type 2 diabetes mellitus with hyperosmolar hyperglycemic state (HHS): Code(s): E11.00 - Type 2 diabetes mellitus with hyperosmolarity without nonketotic hyperglycemic-hyperosmolar coma (NKHHC); E11.65 - Type 2 diabetes mellitus with hyperglycemia Status: Acute Assessment and Plan: Continue IV insulin infusion Continue volume resuscitation patient currently is on normal saline with potassium (3) Pneumonia: Qualifiers: Laterality: unspecified laterality Lung location: unspecified part of lung Pneumonia type: due to unspecified organism Qualified Code(s): J18.9 - Pneumonia, unspecified organism Code(s): J18.9 - Pneumonia, unspecified organism Status: Acute Assessment and Plan: See above (4) Urinary tract infection: Qualifiers: Urinary tract infection type: acute pyelonephritis Qualified Code(s): N10 - Acute pyelonephritis Code(s): N39.0 - Urinary tract infection, site not specified Status: Acute Assessment and Plan: See above (5) CVA (cerebral vascular accident): Code(s): I63.9 - Cerebral infarction, unspecified Status: Acute Assessment and Plan: Continue aspirin (6) Hypothyroidism: Code(s): E03.9 - Hypothyroidism, unspecified Status: Acute Assessment and Plan: Continue levothyroxine (7) Urinary obstruction: Code(s): N13.9 - Obstructive and reflux uropathy, unspecified Status: Acute Assessment and Plan: Urology consulted (8) Electrolyte abnormality: Code(s): E87.8 - Other disorders of electrolyte and fluid balance, not elsewhere classified Status: Acute Assessment and Plan: With sodium likely from dehydration and is improving with IV fluids Potassium replacement is ordered (9) Swelling of left lower extremity: Code(s): M79.89 - Other specified soft tissue disorders Status: Acute Assessment and Plan: Check lower extremity Dopplers Additional Plan DVT prophylaxis -Lovenox Nutrition -NPO at this time. Check swallow eval Code Status -patient is DNR DNI Total Critical Care Time - 35 minutes Due to a high probability of clinically significant, life threatening deterioration, the patient required my highest level of preparedness to intervene emergently and I personally spent this critical care time directly and personally managing the patient. This critical care time included obtaining a history; examining the patient; pulse oximetry; ordering and review of studies; arranging urgent treatment with development of a management plan; evaluation of patient's response to treatment; frequent reassessment; and discussions with other providers. It was exclusive of separately billable procedures and treating other patients and teaching time. Please see Assessment and Plan section and the rest of the note for further information on patient assessment and treatment Sheet Metal Worker Maintenance Consult Note Consult date: 03/07/21 HPI: Bhumi Lee
[2021-03-07 09:02] LABS: Glucose Point of Care 314 mg/dl (65-105)
[2021-03-07] MEDS: KCL 20 MEQ/0.45% NS 1,000 ML 100 ML IV CONT (09:27)
[2021-03-07] MEDS: DOPamine 400 MG/D5W 250 ML 400 MG/250 ML BAG 6.17 MG IV CONT (09:30)
--- NOTE | 2021-03-07 09:53 | PCSTNOTE ---
Patient would not arouse for bedside swallowing evaluation despite moving the head of the bed and multiple attempts to arouse. Order to be completed when patient is arousable.
--- NOTE | 2021-03-07 10:55 | WPDURCON ---
Assessment and Plan Assessment and plan (1) Pneumonia: Qualifiers: Laterality: unspecified laterality Lung location: unspecified part of lung Pneumonia type: due to unspecified organism Qualified Code(s): J18.9 - Pneumonia, unspecified organism Code(s): J18.9 - Pneumonia, unspecified organism Status: Acute (2) Septic shock: Code(s): A41.9 - Sepsis, unspecified organism; R65.21 - Severe sepsis with septic shock Status: Acute (3) Urinary tract infection: Qualifiers: Urinary tract infection type: acute pyelonephritis Qualified Code(s): N10 - Acute pyelonephritis Code(s): N39.0 - Urinary tract infection, site not specified Status: Acute Assessment and Plan: 75-year-old female admitted with sepsis. Nursing staff had difficulty with placement of a Erazo catheter which I placed at the bedside today March 07, 2021. There is irritation and possible focal necrosis at the urethral meatus, however no signs of additional necrosis or Fito gangrene. Debridement does not appear necessary. -Erazo catheter was placed for I/Os and should be managed by ICU team -urine appears to be infected with initial placement catheter, the urine was sent for a culture and I recommend continued antibiotics until return of susceptibilities if infection is present -CT scan of the abdomen and pelvis was performed however due to current IT issues at [facility] the images could not reviewed. Await final report -continue supportive ICU care Urology Consult Note HPI Date Seen: 03/07/21 Requesting Physician: Jocelyn Bansal DO Primary Care Provider: Aisha Mata MD Consult Narrative Narrative: Bhumi Levin is a 75 year old female admitted to ICU with hyperglycemia and pneumonia PMFSH Past Medical History Medical History (Updated 03/07/21 @ 09:15 by Reggie Roach MD) Coronary artery disease CVA (cerebral vascular accident) Dementia Essential hypertension GERD (gastroesophageal reflux disease) Hyperlipidemia Hypothyroidism Osteomyelitis of right shoulder August 2018-November 2018 Rheumatoid arthritis Tobacco dependence Type 2 diabetes mellitus Vitamin D deficiency Surgical History Surgical History History of appendectomy History of hysterectomy for cancer Endometrial/uterine cancer Hx of tonsillectomy Previous back surgery Family History Family History Other Hypertension Social History Social History Social History: Primary care physician: Dr. Aisha Mata Code status: DNR/DNI Smoking status: Former smoker Tobacco type: cigarettes Smoking end date: 06/21/14 Alcohol intake: unknown Substance use: unknown Additional living arrangements comments: [facility]. Gender identity (if verbalized by the patient): Female Spiritual care concerns: No Agree to blood products: Yes Meds Home Medications and Allergies Home Medications Medication Instructions Recorded Confirmed Type aspirin [Aspirin Low Dose] 81 mg PO DAILY 06/21/19 03/07/21 History atorvastatin 20 mg PO DAILY 06/21/19 03/07/21 History levothyroxine 150 mcg PO DAILY 06/21/19 03/07/21 History divalproex 250 mg PO BID 03/07/21 03/07/21 History escitalopram oxalate 10 mg PO HS 03/07/21 03/07/21 History nitrofurantoin monohyd/m-cryst 100 mg PO BID 03/07/21 03/07/21 History Allergies Allergy/AdvReac Type Severity Reaction Status Date / Time codeine AdvReac Mild NAUSEA Verified 03/06/21 23:10 Vital Signs Vital Signs - 24 hr 03/06/21 22:55 03/06/21 23:31 03/06/21 23:32 Temperature 36.0 C L Pulse Rate 91 85 88 Respiratory Rate 22 H 23 H 25 H Blood Pressure 135/74 124/72 Pulse Oximetry 95 95 95 03/06/21 23:46 03/06/21 23:47 03/07/21 00:02 Temperature P
[2021-03-07 11:02] LABS: Glucose Point of Care 219 mg/dl (65-105)
[2021-03-07 11:02] LABS: Glucose Point of Care 225 mg/dl (65-105)
[2021-03-07] MEDS: CALCIUM GLUC 2,000 MG/NS 100ML 2,000 MG/100 ML BAG 100 MG IVPB (11:23)
[2021-03-07] MEDS: LIDOCAINE HCL 1% PF INJ 5 ML VIAL INFILTRATE (11:24)
[2021-03-07 12:26] LABS: Glucose Point of Care 202 mg/dl (65-105)
[2021-03-07] MEDS: POTASSIUM CHLORIDE INJ 40 MEQ in SODIUM CHLORIDE 0.9% IV 500 ML 130 MEQ IVPB (12:31)
[2021-03-07 13:11] LABS: Glucose Point of Care 173 mg/dl (65-105)
[2021-03-07] MEDS: PIPERACILLIN/TAZOBACTAM SOD 4.5 GM in SODIUM CHLORIDE 0.9% IV 100 ML IVPB ×2 (13:37→18:20)
[2021-03-07] MEDS: CENTRAL LINE FLUSH 10 ML IV PUSH ×2 (13:42→21:29)
[2021-03-07 13:46] LABS: Anion Gap 8 mmol/L (8-16); Blood Urea Nitrogen 33 mg/dL (7-17); Calcium 7.9 mg/dL (8.4-10.2); Carbon Dioxide 21 mmol/L (22-30); Chloride 118 mmol/L (98-107); Estimated CRCL calculation 57 ml/min; Estimated Glomerular Filt Rate > 60; Glucose 144 mg/dL (65-110); Lactic Acid Reflex 2.6 mmol/L (0.7-2.1); Potassium 3.8 mmol/L (3.4-5.0); Sodium 147 mmol/L (137-145)
[2021-03-07] MEDS: ENOXAPARIN 80 MG/0.8 ML SYRINGE SUB-Q (13:52)
[2021-03-07] MEDS: INSULIN HUMAN REGULAR (*BKC) 100 UNITS in SODIUM CHLORIDE 0.9% IV 99 ML 11.3 UNITS IV CONT (14:00)
[2021-03-07 14:07] LABS: Add Urine Microscopic? YES; Appearance Urine Cloudy (Clear); Bacteria Urine 4+ /hpf; Bilirubin Urine Negative (Negative); Blood Urine 2+ (Negative); Budding Yeast Urine Present /hpf; Calcium Oxalate Crystals Urine Present /hpf; Color Urine Yellow (Yellow); Glucose Urine UA 1+ mg/dL (Negative); Ketones Urine Negative (Negative); Leukocyte Esterase Ur 3+ LEU/UL (Negative); Mucus Urine Rare /lpf; Nitrate Urine Negative (Negative); Protein Urine 1+ mg/dL (Negative); RBC Urine 21-50 /hpf (0-2); Specific Grav Ur 1.012 (1.001-1.035); Urobilinogen Urine Negative mg/dL (<2.0); WBC Urine >75 /hpf
[2021-03-07 14:10] LABS: Glucose Point of Care 157 mg/dl (65-105)
[2021-03-07 15:10] LABS: Glucose Point of Care 139 mg/dl (65-105)
[2021-03-07 16:10] LABS: Glucose Point of Care 130 mg/dl (65-105)
[2021-03-07 16:33] LABS: Reflex Lactic Acid Yes or No Add Lactic
[2021-03-07 17:00] LABS: Glucose Point of Care 101 mg/dl (65-105)
[2021-03-07 18:04] LABS: Glucose Point of Care 93 mg/dl (65-105)
[2021-03-07 18:45] LABS: Anion Gap 8 mmol/L (8-16); Blood Urea Nitrogen 29 mg/dL (7-17); Calcium 7.7 mg/dL (8.4-10.2); Carbon Dioxide 22 mmol/L (22-30); Chloride 118 mmol/L (98-107); Estimated CRCL calculation 51 ml/min; Estimated Glomerular Filt Rate > 60; Glucose 93 mg/dL (65-110); Potassium 4.1 mmol/L (3.4-5.0); Sodium 148 mmol/L (137-145)
[2021-03-07 18:46] LABS: Lactic Acid 3.2 mmol/L (0.7-2.1)
[2021-03-07] MEDS: INSULIN GLARGINE (*BKC) 100 UNITS/ML 20 UNITS SUB-Q (19:35)
[2021-03-07] MEDS: SODIUM CHLORIDE 0.45% 1,000 ML 100 ML IV CONT (19:35)
[2021-03-07 20:33] LABS: Glucose Point of Care 105 mg/dl (65-105)
[2021-03-08] VITALS (24 sets, daily range): BP systolic 65–138; BP diastolic 41–70; PULSE 45–147; RESP 17–22; TEMP 36.2–37.3; O2SAT 92–100
[2021-03-08] MEDS: PIPERACILLIN/TAZOBACTAM SOD 4.5 GM in SODIUM CHLORIDE 0.9% IV 100 ML IVPB (00:21)
[2021-03-08 00:23] LABS: Glucose Point of Care 190 mg/dl (65-105)
[2021-03-08] MEDS: DOPamine 400 MG/D5W 250 ML 400 MG/250 ML BAG 12.33 MG IV CONT (02:44)
[2021-03-08] MEDS: SODIUM CHLORIDE 0.45% 1,000 ML 100 ML IV CONT ×2 (04:24→15:36)
[2021-03-08] MEDS: ENOXAPARIN 80 MG/0.8 ML SYRINGE SUB-Q (04:24)
[2021-03-08] MEDS: INSULIN ASPART (*BKC) 100 UNITS/ML SUB-Q ×3 (04:24→13:14)
[2021-03-08] MEDS: PIPERACILLIN/TAZOBACTAM SOD 4.5 GM in SODIUM CHLORIDE 0.9% IV 100 ML 200 ML IVPB (04:41)
[2021-03-08] MEDS: CENTRAL LINE FLUSH 10 ML IV PUSH ×2 (04:41→13:31)
[2021-03-08] MEDS: LEVOTHYROXINE SODIUM INJ 100 MCG/5 ML VIAL 75 MCG IV PUSH (04:46)
[2021-03-08 04:52] LABS: Glucose Point of Care 228 mg/dl (65-105)
[2021-03-08 05:17] LABS: Basophils Absolute Auto 0.1 K/mm3 (0.0-0.1); Basophils Percent Auto 0.4 % (0.2-1.2); Eosinophils Absolute Auto 0.1 K/mm3 (0-0.3); Hematocrit 31.7 % (37.0-47.0); Hemoglobin 10.3 g/dL (12.0-15.0); Immature Granulocyte Absolute 0.18 K/mm3 (0.00-0.031); Immature Granulocyte Percent A 1.3 % (0-0.5); Lymphocytes Absolute Auto 1.26 K/mm3 (0.9-3.2); Lymphocytes Percent Auto 8.9 % (18.3-44.2); Mean Corpuscular HGB Conc 32.5 g/dl (32-36); Mean Corpuscular Hemoglobin 31.5 pg (26-34); Mean Corpuscular Volume 96.9 fl (80-100); Mean Platelet Volume 12.8 fl (7.4-10.4); Monocytes Absolute Auto 0.5 K/mm3 (0.1-0.6); Monocytes Percent Auto 3.8 % (2.6-8.5); Neutrophils Percent Auto 84.6 % (45.5-73.1); Platelet Count Result 128 k/mm3 (150-375); Red Blood Count 3.27 M/mm3 (4.2-5.4); Red Cell Distribution Width 15.9 % (11.5-14.5); White Blood Count 14.1 K/mm3 (4.5-10.0)
[2021-03-08 05:31] LABS: Alanine Aminotransferase 17 U/L (4-35); Albumin Level 2.5 g/dL (3.5-5.1); Alkaline Phosphatase 80 U/L (38-126); Anion Gap 5 mmol/L (8-16); Aspartate Amino Transferase 33 U/L (14-36); Bilirubin,Total 0.7 mg/dL (0.2-1.3); Blood Urea Nitrogen 26 mg/dL (7-17); Calcium 7.1 mg/dL (8.4-10.2); Carbon Dioxide 20 mmol/L (22-30); Chloride 115 mmol/L (98-107); Estimated CRCL calculation 58 ml/min; Estimated Glomerular Filt Rate > 60; Glucose 282 mg/dL (65-110); Magnesium 1.9 mg/dL (1.6-2.3); Potassium 3.8 mmol/L (3.4-5.0); Sodium 140 mmol/L (137-145)
[2021-03-08 08:19] LABS: Glucose Point of Care 252 mg/dl (65-105)
[2021-03-08] MEDS: METOPROLOL TARTRATE INJ 5 MG/5 ML VIAL IV PUSH (08:55)
[2021-03-08] MEDS: AMIODARONE 150 MG/D5W 100 ML 150 MG/100 ML BAG 600 MG IV CONT (09:00)
--- NOTE | 2021-03-08 09:00 | ECG_ITS ---
Measurements Intervals [place] Rate: 136 P: ME: 0 QRS: -31 QRSD: 130 T: 59 QT: 331 QTc: 498 Interpretive Statements ATRIAL FIBRILLATION WITH RAPID VENTRICULAR RESPONSE LEFT AXIS DEVIATION RIGHT BUNDLE BRANCH BLOCK BASELINE ARTIFACT- I, III, AVL ABNORMAL ECG Electronically Signed On 03-08-2021 9:29:21 HOME HEALTH CLINICAL SUPERVISOR by Bryan Cole D.O.
[2021-03-08] MEDS: AMIODARONE 360 MG/D5W 200 ML 360 MG/200 ML BAG 33.33 MG IV CONT (09:10)
--- NOTE | 2021-03-08 09:42 | PCSTNOTE ---
Attempted bedside swallowing evaluation. The patient woke up x2, however could not keep her eyes open. Cold oral swab used to attempt to wake the patient and have her open her mouth. She did not open her mouth despite attempts. Attempt bedside swallow evaluation 1x more, if unsuccessful, discuss holding the order until patient's status changes. ERIC Navarro made aware of the attempt, unable to reach criminal records technician.
[2021-03-08] MEDS: CALCIUM CHLOR 1,000MG/100ML NS 1,000 MG/100 ML BAG 100 MG IVPB (09:58)
[2021-03-08] MEDS: INSULIN GLARGINE (*BKC) 100 UNITS/ML 20 UNITS SUB-Q (10:00)
[2021-03-08] MEDS: NOREPINEPHRINE 8 MG/D5W 250 ML 8 MG/250 ML BAG 9.38 MG IV CONT (10:15)
--- NOTE | 2021-03-08 10:16 | WPDINTPN ---
Progress Note: A&P Assessment and Plan (1) Septic shock: Code(s): A41.9 - Sepsis, unspecified organism; R65.21 - Severe sepsis with septic shock Status: Acute Assessment and Plan: Secondary to UTI and possibly aspiration pneumonia. Patient does have history of frequent UTIs UA confirms UTI at this presentation Blood and urine culture sent. 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 (2) Type 2 diabetes mellitus with hyperosmolar hyperglycemic state (HHS): Code(s): E11.00 - Type 2 diabetes mellitus with hyperosmolarity without nonketotic hyperglycemic-hyperosmolar coma (NKHHC); E11.65 - Type 2 diabetes mellitus with hyperglycemia Status: Acute Assessment and Plan: IV insulin infusion has been switched to Lantus and sliding scale insulin Continue volume resuscitation patient currently is on normal saline with potassium (3) Pneumonia: Qualifiers: Laterality: unspecified laterality Lung location: unspecified part of lung Pneumonia type: due to unspecified organism Qualified Code(s): J18.9 - Pneumonia, unspecified organism Code(s): J18.9 - Pneumonia, unspecified organism Status: Acute Assessment and Plan: See above (4) Urinary tract infection: Qualifiers: Urinary tract infection type: acute pyelonephritis Qualified Code(s): N10 - Acute pyelonephritis Code(s): N39.0 - Urinary tract infection, site not specified Status: Acute Assessment and Plan: See above (5) CVA (cerebral vascular accident): Code(s): I63.9 - Cerebral infarction, unspecified Status: Acute Assessment and Plan: Continue aspirin (6) Hypothyroidism: Code(s): E03.9 - Hypothyroidism, unspecified Status: Acute Assessment and Plan: Continue levothyroxine (7) Urinary obstruction: Code(s): N13.9 - Obstructive and reflux uropathy, unspecified Status: Acute Assessment and Plan: Urology consulted and Erazo was placed (8) Electrolyte abnormality: Code(s): E87.8 - Other disorders of electrolyte and fluid balance, not elsewhere classified Status: Acute Assessment and Plan: With sodium likely from dehydration and is improving with IV fluids Potassium replacement is ordered (9) Swelling of left lower extremity: Code(s): M79.89 - Other specified soft tissue disorders Status: Acute Assessment and Plan: Check lower extremity Dopplers (10) DVT (deep venous thrombosis): Code(s): I82.409 - Acute embolism and thrombosis of unspecified deep veins of unspecified lower extremity Status: Acute Assessment and Plan: lower extremity Doppler showed extensive DVT in left lower extremity patient has been started on Lovenox (11) Atrial fibrillation with RVR: Code(s): I48.91 - Unspecified atrial fibrillation Status: Acute Assessment and Plan: patient was in sinus bradycardia yesterday despite being hypotensive. I started patient on dopamine infusion for blood pressure support and chronotropic effect. This morning patient went into AFib with RVR. Patient was switched to Juan-Synephrine and amiodarone bolus and infusion was started patient now has converted back into normal sinus rhythm and is in sinus Martha. 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
--- NOTE | 2021-03-08 10:37 | P.PNCROSS_ITS ---
Event Note Event Note Event Note: I spoke to patient's Daughter Araceli by phone. I updated her with patient's current status including sinus bradycardia and AFib, septic shock, dementia, dysphagia and our current treatment plan. she told me that patient has been gradually deteriorating from last few years in the [place] [facility]. lately her p.o. intake was minimal as she would not make any effort to eat. She states that she is interested in hospice care for her considering her age, dementia, multiple other medical problems overall poor prognosis. Patient is already DNR DNI. We have decided not consult Cardiology at this time, continue current treatment and consult hospice. She will discuss with hospice services and make further decisions
[2021-03-08 13:09] LABS: Glucose Point of Care 236 mg/dl (65-105)
[2021-03-08] MEDS: MIDODRINE HCL 10 MG TABLET PO (13:14)
[2021-03-08] MEDS: ASPIRIN 81 MG ENTERIC TABLET PO (13:14)
[2021-03-08] MEDS: ATORVASTATIN 20 MG TABLET PO (13:14)
[2021-03-08] MEDS: ALBUMIN HUMAN 25% 25 GM/100 ML 100 ML IVPB (13:26)
[2021-03-08] MEDS: ATROPINE SULFATE 1 MG/10 ML SYRINGE IV PUSH ×2 (15:20→15:36)
[2021-03-08 16:54] LABS: Glucose Point of Care 187 mg/dl (65-105)
[2021-03-08] MEDS: MORPHINE SULFATE (*CRX) 2 MG/ML INJ IV PUSH (21:11)
--- NOTE | 2021-03-08 23:19 | PC.NURSE ---
transfered to 311in floor bed on rooom air. pt opens eyes to name report given to miguelina
--- NOTE | 2021-03-09 00:31 | PC.NURSE ---
Patient transferred to Room 311 from ICU. Patient is in stable condition.
[2021-03-09] MEDS: MORPHINE SULFATE (*CRX) 2 MG/ML INJ IV PUSH (02:18)
[2021-03-09 08:00] VITALS: BP 90/44; PULSE 52; RESP 21; TEMP 36.1; O2SAT 93
--- NOTE | 2021-03-09 10:33 | PM.DS ---
DS: Admitting Diagnosis Discharge Date 03/09/2021 Admitting Diagnosis Septic shock DS: Discharge Diagnosis Discharge Diagnosis (1) Septic shock: Code(s): A41.9 - Sepsis, unspecified organism; R65.21 - Severe sepsis with septic shock Status: Acute Assessment and Plan: Secondary to UTI and possibly aspiration pneumonia. Medical management provided in the ICU but eventually family decided to change to comfort care given the patient's overall decline and based on her previous wishes to avoid extraordinary life-saving measures. She she was discharged to hospice (2) Type 2 diabetes mellitus with hyperosmolar hyperglycemic state (HHS): Code(s): E11.00 - Type 2 diabetes mellitus with hyperosmolarity without nonketotic hyperglycemic-hyperosmolar coma (NKHHC); E11.65 - Type 2 diabetes mellitus with hyperglycemia Status: Acute (3) Pneumonia: Qualifiers: Laterality: unspecified laterality Lung location: unspecified part of lung Pneumonia type: due to unspecified organism Qualified Code(s): J18.9 - Pneumonia, unspecified organism Code(s): J18.9 - Pneumonia, unspecified organism Status: Acute (4) Urinary tract infection: Qualifiers: Urinary tract infection type: acute pyelonephritis Qualified Code(s): N10 - Acute pyelonephritis Code(s): N39.0 - Urinary tract infection, site not specified Status: Acute (5) CVA (cerebral vascular accident): Code(s): I63.9 - Cerebral infarction, unspecified Status: Acute (6) Hypothyroidism: Code(s): E03.9 - Hypothyroidism, unspecified Status: Acute (7) Urinary obstruction: Code(s): N13.9 - Obstructive and reflux uropathy, unspecified Status: Acute (8) Electrolyte abnormality: Code(s): E87.8 - Other disorders of electrolyte and fluid balance, not elsewhere classified Status: Acute (9) DVT (deep venous thrombosis): Code(s): I82.409 - Acute embolism and thrombosis of unspecified deep veins of unspecified lower extremity Status: Acute (10) Atrial fibrillation with RVR: Code(s): I48.91 - Unspecified atrial fibrillation Status: Acute (11) Sinus bradycardia: Code(s): R00.1 - Bradycardia, unspecified Status: Acute (12) Dysphagia: Code(s): R13.10 - Dysphagia, unspecified Status: Acute DS: Summary Hospital Course Hospital Course: Date of admission: 03/07/2021 Date of discharge: 03/09/2021 Bhumi Levin is a 75-year-old female with a history of advanced dementia, type 2 diabetes, hypothyroidism, and frequent UTIs who presented to the emergency department on 03/07/2019 to from her care home given decreased responsiveness and elevated glucose. On presentation to the ED, her vital signs were stable, she was afebrile, WBC elevated, BUN and creatinine elevated, glucose 823. She was admitted to the hospitalist service for further evaluation and management. Upon admission to the ICU, she was noted to have significant decline in blood pressures and was started on peripheral vasopressors. Shed Workers Supervisor discussed with patients family who reported that the patient has had general decline over the past several years and had progressively decreased PO intake. Given the patients dementia, multiple medical comorbidities, and progressive decline, they requested to proceed with hospice care. Care was arranged with [facility] hospice and patient was discharged back to her care home on 03/09/2021. Time Spent with Patient Time attestation: Total time spent providing and/or coordinating discharge services: 35 minutes Time spent: Greater than 30 minutes Exam Narrative: Ms. Levin is a thin, frail 75-year-old female who is lying supine in bed. She appears comfortable and is in NARD. Neuro: asleep, will open eyes to verbal stimuli but provides no verbal response HEENMT: normocephalic, atraumatic, EOMI, sclerae anicteric Respiratory: clear to
[2021-03-09 11:24] LABS: EDCOVIDSCREEN Positive (Negative)
[2021-03-09 12:41] LABS: SARS-CoV-2 RNA PCR Negative
[2021-03-09] MEDS: MORPHINE SULFATE ORAL CONC SOL (*CRX) 10 MG/0.5 ML SYRINGE 5 MG PO (14:22)
--- NOTE | 2021-03-09 14:30 | PC.NURSE ---
report given to Juliane at [facility]. Juliane states DON does not want patient arriving with taylor catheter. Discussed with Vicky and joann to remove taylor prior to discharge. taylor d/c'd
== END 2021-03-09 14:33 | disposition hospice, home (50) | DRG 871 ==
LOC: ANHED 03-07 02:35 → ANHICU 03-07 03:38 → ANH3MEDSUR 03-08 23:35
PROVIDERS: Internal Medicine; Admitting Provider Internal Medicine; Emergency Provider Emergency Medicine; PCP Family Medicine; Visit Provider Physician Assistant
DX: A41.9 Sepsis, unspecified organism (principal); R65.21 Severe sepsis with septic shock; J18.9 Pneumonia, unspecified organism; J69.0 Pneumonitis due to inhalation of food and vomit; E11.00 Type 2 diabetes mellitus with hyperosmolarity without nonketotic hyperglycemic-hyperosmolar coma (NKHHC); N39.0 Urinary tract infection, site not specified; I82.412 Acute embolism and thrombosis of left femoral vein; I82.432 Acute embolism and thrombosis of left popliteal vein; I82.442 Acute embolism and thrombosis of left tibial vein; I82.452 Acute embolism and thrombosis of left peroneal vein; I82.492 Acute embolism and thrombosis of other specified deep vein of left lower extremity; R13.10 Dysphagia, unspecified; I48.91 Unspecified atrial fibrillation; I49.5 Sick sinus syndrome; Z20.822 Contact with and (suspected) exposure to COVID-19; N13.9 Obstructive and reflux uropathy, unspecified; E03.9 Hypothyroidism, unspecified; F03.90 Unspecified dementia, unspecified severity, without behavioral disturbance, psychotic disturbance, mood disturbance, and anxiety; I25.10 Atherosclerotic heart disease of native coronary artery without angina pectoris; K21.9 Gastro-esophageal reflux disease without esophagitis; E11.65 Type 2 diabetes mellitus with hyperglycemia; E55.9 Vitamin D deficiency, unspecified; M06.9 Rheumatoid arthritis, unspecified; E86.0 Dehydration; E78.5 Hyperlipidemia, unspecified; T17.308A Unspecified foreign body in larynx causing other injury, initial encounter; Z66 Do not resuscitate; Z86.73 Personal history of transient ischemic attack (TIA), and cerebral infarction without residual deficits; Z90.49 Acquired absence of other specified parts of digestive tract; Z90.710 Acquired absence of both cervix and uterus; Z85.42 Personal history of malignant neoplasm of other parts of uterus; Z87.891 Personal history of nicotine dependence; Z86.16 Personal history of COVID-19; Z79.82 Long term (current) use of aspirin; M79.89 Other specified soft tissue disorders; I82.462 Acute embolism and thrombosis of left calf muscular vein
CPT/HCPCS: 36415; 36569; 36600; 70450; 71045; 71250; 74176; 80048; 80053; 81001; 82010; 82805; 82948; 83036; 83605; 83690; 83735; 83880; 84100; 84443; 84484; 85025; 85610; 85730; 86140; 87040; 87086; 87426; 93005; 93971; 96361; 96365; 96366; 96367; 96368; 99285; A9270; C1751; C9803; G0378; J0282; J0295; J0461; J0610; J0743; J1265; J1650; J1815; J2270; J2370; J2543; J3370; J3480; J7030; J7040; J7060; P9047; U0003; U0005

== ENCOUNTER 2022-01-07 15:31 | Observation (INO) | payer OTHER, SELFPAY ==
[2022-01-07] VITALS (20 sets, daily range): BP systolic 107–180; BP diastolic 38–90; PULSE 64–96; RESP 15–31; TEMP 36.3–36.9; O2SAT 92–96
--- NOTE | ~2022-01-07 | US_ITS ---
EXAMINATION: US venous doppler [facility] DATE: 01/08/2022 15:42 INDICATION: Lower limb edema. TECHNIQUE: Grayscale ultrasound images without and with compression and Doppler ultrasound images of the bilateral lower extremity veins were obtained. COMPARISON: Ultrasound 03/07/2021 FINDINGS: The patient's body habitus decreases sensitivity. The visualized portions of right common femoral vei n, profunda (deep) femoral vein, femoral vein, popliteal vein, peroneal veins, posterior tibial veins , and greater saphenous vein outflow are patent. The visualized portions of left common femoral vein, profunda femoral vein, femoral vein, peroneal ve ins, posterior tibial veins, and greater saphenous vein outflow are patent. The left popliteal vein i s not well evaluated. IMPRESSION: 1. No deep venous thrombosis. Reviewed, dictated and finalized at location A. MAGISTRATE
--- NOTE | ~2022-01-07 | XR_ITS ---
EXAMINATION: XR chest 1V portable INDICATION: Cough and hypoxia TECHNIQUE: Portable AP chest at 1648 hours COMPARISON: 01/06/2022 FINDINGS: Lung volumes are low. Bibasilar airspace opacities persist without significant change. The left upper extremity PICC has been removed. The cardiomediastinal silhouette is stable. No pleural ef fusion or pneumothorax. IMPRESSION: 1. Stable bibasilar airspace opacities, consistent with atelectasis versus pneumonia. 2. Left upper extremity PICC removed. Reviewed, dictated and finalized at location F. COMPRESSOR OPERATOR ADJUSTER IMPRESSION: 1. Stable bibasilar airspace opacities, consistent with atelectasis versus pneu monia. 2. Left upper extremity PICC removed.
--- NOTE | ~2022-01-07 | CT_ITS ---
EXAMINATION: CT brain wo con DATE: 01/07/2022 17:03 INDICATION: Altered mental state TECHNIQUE: Computed tomography (CT) of the head was performed without intravenous contrast. The mA wa s adjusted according to patient size. Iterative reconstruction technique was employed. Exam dose: 60 5.33 mGy-cm total exam DLP. COMPARISON: 03/06/2021 CT brain FINDINGS: Right vertebral and prominent bilateral carotid siphon internal carotid artery calcificatio ns. 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 No intracranial mass lesion or hemorrhage or cerebrovascular accident is evident. No midline shift or mass effect. There is prominent central and cortical cerebral and moderate cerebellar atrophy. No subdural or epidural hematoma is detected. No orbital mass lesion Minimal posterior right sphenoid sinus mucoperiosteal thickening. The paranasal sinuses are otherwise unremarkable. The mastoid air cells are normally developed and aerated on the right. The left mastoi d air cells are opacified. IMPRESSION: Cerebral atherosclerosis and chronic small vessel ischemic changes of the cerebral white matter Central and cortical cerebral and cerebellar atrophy No acute intracranial finding Left mastoid effusion Reviewed, dictated and finalized at [facility]. Reviewed, dictated and finalized at [facility]. [employer]
--- NOTE | 2022-01-07 15:51 | ECG_ITS ---
Measurements Intervals [place] Rate: 70 P: MD: 0 QRS: -76 QRSD: 168 T: 16 QT: 489 QTc: 529 Interpretive Statements PROBABLY SINUS RHYTHM WITH FIRST DEFREE AV BLOCK (BASELINE ATIFACT) RIGHT BUNDLE BRANCH BLOCK LEFT ANTERIOR FASCICULAR BLOCK BASELINE ARTIFACT- I, II, III, AVR, AVL, AVF, V1-V6 ABNORMAL ECG COMPARED TO ECG 03/08/2021 08:50:22 SINUS RHYTHM NOW PRESENT LEFT ANTERIOR FASCICULAR BLOCK NOW PRESENT Electronically Signed On 01-07-2022 20:55:07 WINDOWS DEPLOYMENT TECHNICIAN by Bryan Cole D.O.
--- NOTE | 2022-01-07 16:09 | ED.GENADULT ---
HPI - General Adult General Chief complaint: Recheck/Abnormal Lab/Rx Stated complaint: ABN LABS Time Seen by Provider: 01/07/22 15:34 Source: RN notes reviewed History of Present Illness HPI narrative: Patient presents emergency department via EMS from [facility] for abnormal labs. Per the staff the patient had increasing BUN and creatinine levels and was sent for further evaluation. Patient was noted to be hypoxic upon arrival and an O2 sat of 88% was placed on 2 L nasal cannula the patient is also been noted to be having some altered mental status the patient currently is nonverbal in the room unable to give any further history Related Data Home Medications Medication Instructions Recorded Confirmed aspirin 81 mg tablet,delayed 81 mg PO DAILY 06/21/19 03/07/21 release ([place]ue Low Dose Aspirin) atorvastatin 20 mg tablet 20 mg PO DAILY 06/21/19 03/07/21 levothyroxine 137 mcg tablet 150 mcg PO DAILY 06/21/19 03/07/21 divalproex 250 mg tablet,delayed 250 mg PO BID 03/07/21 03/07/21 release escitalopram oxalate 10 mg tablet 10 mg PO HS 03/07/21 03/07/21 Allergies Allergy/AdvReac Type Severity Reaction Status Date / Time codeine AdvReac Mild NAUSEA Verified 03/26/21 10:38 Review of Systems Review of Systems: Unable to obtain review of systems secondary to altered mental status ROS unobtainable: Yes unobtainable due to medical condition [facility] Past Medical History Medical History Coronary artery disease CVA (cerebral vascular accident) Dementia Essential hypertension GERD (gastroesophageal reflux disease) Hyperlipidemia Hypothyroidism Osteomyelitis of right shoulder August 2018-November 2018 Rheumatoid arthritis Tobacco dependence Type 2 diabetes mellitus Vitamin D deficiency Surgical History Surgical History (System 03/26/21 @ 10:38 by Ana Galaviz) History of appendectomy History of hysterectomy for cancer Endometrial/uterine cancer Hx of tonsillectomy Previous back surgery Family History Family History Other Hypertension Social History Social History Social History: Primary care physician: Dr. Aisha Mata Code status: DNR/DNI Smoking status: Former smoker Tobacco type: cigarettes Smoking end date: 06/21/14 Alcohol intake: unknown Substance use: unknown Additional living arrangements comments: [facility]. Gender identity (if verbalized by the patient): Female Spiritual care concerns: No Agree to blood products: Yes Exam Narrative: APPEARANCE: Laying in bed with eyes closed will open eyes to loud verbal stimuli nonverbal EYES: PERRL HEENT: Normocephalic, atraumatic, oral mucosa dry RESPIRATORY: No respiratory distress Clear to auscultation bilaterally with no rhonchi wheezing or rales. CARDIOVASCULAR: Regular rate and rhythm without murmurs rubs or gallops. ABDOMINAL: Soft, nontender, nondistended, no rebound or guarding MUSCULOSKELETAl: Moves all extremities. No clubbing, cyanosis 2+ edema of the bilateral lower extremities NEURO: Laying in bed will open eyes to loud verbal stimuli nonverbal does not follow commands SKIN:: Warm, dry. No rashes lesions or abrasions Course Course Emergency Course: Reviewed old records. The patient had been on hospice at last discharge Patient's daughter is present with her returning she states the patient had been on hospice program out of hospice days at the end of September. She states that the patient is a DNR and would be comfort measures only would not want a central line if blood pressures became low. We discussed the diagnosis need for admission all questions answered in agreement at this time states at baseline the patient is nonverbal Vital Signs Vital signs: Vital Signs Temperature 98.4 F 01/07/22 15:43 Pulse Rate 72
[2022-01-07 16:24] LABS: Basophils Percent Auto 0.2 % (0.2-1.2); Eosinophils Percent Auto 0.1 % (0-4.4); Hematocrit 30.2 % (37.0-47.0); Immature Granulocyte Absolute 0.06 K/mm3 (0.00-0.031); Immature Granulocyte Percent A 0.4 % (0-0.5); Lymphocytes Absolute Auto 1.84 K/mm3 (0.9-3.2); Lymphocytes Percent Auto 13.7 % (18.3-44.2); Mean Corpuscular HGB Conc 36.4 g/dl (32-36); Mean Corpuscular Hemoglobin 32.4 pg (26-34); Mean Corpuscular Volume 89.1 fl (80-100); Mean Platelet Volume 11.8 fl (7.4-10.4); Monocytes Absolute Auto 0.5 K/mm3 (0.1-0.6); Monocytes Percent Auto 3.5 % (2.6-8.5); Neutrophils Percent Auto 82.1 % (45.5-73.1); Platelet Count Result 229 k/mm3 (150-375); Red Blood Count 3.39 M/mm3 (4.2-5.4); White Blood Count 13.4 K/mm3 (4.5-10.0)
[2022-01-07 16:35] LABS: INR 1.1; Partial Thromboplastin Time 29.7 SECONDS (22.3-36.8); Prothrombin Time 14.2 Seconds (11.1-14.7)
[2022-01-07 16:42] LABS: Alanine Aminotransferase 19 U/L (6-35); Albumin Level 4.3 g/dL (3.5-5.1); Alkaline Phosphatase 121 U/L (38-126); Anion Gap 16 mmol/L (8-16); Aspartate Amino Transferase 38 U/L (14-36); Bilirubin,Total 0.8 mg/dL (0.2-1.3); Blood Urea Nitrogen 49 mg/dL (7-17); Carbon Dioxide 38 mmol/L (22-30); Chloride 68 mmol/L (98-107); Creatine Kinase 177 U/L (30-135); Estimated CRCL calculation 45 ml/min; Estimated Glomerular Filt Rate > 60; Glucose 398 mg/dL (65-110); Potassium 2.3 mmol/L (3.4-5.0); Sodium 122 mmol/L (137-145)
[2022-01-07] MEDS: SODIUM CHLORIDE 0.9% IV 1,000 ML 999 ML IV CONT ×2 (16:47→18:32)
[2022-01-07 17:00] LABS: Influenza A QL RT-PCR Negative (Negative); Influenza B QL RT-PCR Negative (Negative); SARS-CoV-2 RNA PCR Negative
[2022-01-07 17:34] LABS: Lactic Acid Reflex 3.4 mmol/L (0.7-2.0)
[2022-01-07 17:48] LABS: Appearance Urine Cloudy (Clear); Bilirubin Urine Negative (Negative); Blood Urine 2+ (Negative); Color Urine Yellow (Yellow); Glucose Urine UA Negative (Negative); Ketones Urine Negative (Negative); Leukocyte Esterase Ur 3+ LEU/UL (Negative); Nitrate Urine Negative (Negative); Protein Urine 1+ mg/dL (Negative); Specific Grav Ur 1.015 (1.001-1.035); Urobilinogen Urine 0.2 mg/dL (<2.0); pH Urine 5.5 (5.0-9.0)
[2022-01-07 17:56] LABS: Bacteria Urine 3+ /hpf; RBC Urine 21-50 /hpf (0-2); Squamous Epithelial Cell Urine Few /hpf (Few); WBC Urine >75 /hpf
[2022-01-07 17:58] LABS: Add Urine Microscopic? YES
[2022-01-07] MEDS: POTASSIUM CHLORIDE 20 MEQ PACKET (FOR LIQUID) 40 MEQ PO (18:33)
[2022-01-07 18:42] LABS: Glucose Point of Care 333 mg/dl (65-105)
[2022-01-07 20:20] LABS: Reflex Lactic Acid Yes or No Add Lactic
[2022-01-07] MEDS: POTASSIUM CHLORIDE INJ 40 MEQ in SODIUM CHLORIDE 0.9% IV 500 ML 130 MEQ IVPB (20:21)
--- NOTE | 2022-01-07 20:36 | PM.IMHP ---
H&P: HPI History of Present Illness Date/Time: 01/07/22 20:36 Chief Complaint: Abnormal labs Narrative: This is a 76-year-old female patient who has dementia. The patient had been on hospice for approximately 6 months and was recently released from hospice. The patient continues to be a DNR. The patient has severe dementia and is nonverbal. Due to abnormal labs. She was noted to have increased BUN and creatinine levels and was sent here for further evaluation. Patient was also noted to have altered mental status and her O2 saturation was dropped down to 88% and she was placed on oxygen at 2 L per nasal cannula. Her white count was noted to be 13.4. Her H&H is 11.0 in 30.2. Which appears to be at her baseline. Her sodium was found to be 122. Her creatinine is normal but her BUN is 49. Her blood glucose is 398. Lactic was 3.4 now 3.7. Her urine was found to be positive for UTI. The patient was negative for influenza A/B and COVID. While in the emergency room the patient had a witnessed seizure that lasted approximately 5 minutes. The patient has no previous history of having any seizures. Since the patient is a DNR I asked her only daughter who is the power water and fire technician if she wished to proceed with consulting Neurology in treating her for seizures. The daughter agreed. Chest x-ray was read as stable bibasilar airspace opacities consistent with atelectasis versus pneumonia. Left upper extremity PICC removed. Head CT was read as the followingCerebral atherosclerosis and chronic small vessel ischemic changes of the cerebral white matter Central and cortical cerebral and cerebellar atrophy No acute intracranial finding Left mastoid effusion. The patient was given 2 L of IV fluids. Oral potassium and IV potassium. She was given Rocephin in the emergency room. I did start the patient on Keppra. Neurology has been consulted. The patient is being admitted to observation status on the date of service of 01/07/2022. Review of Systems Review of Systems: See HPI All systems reviewed & are unremarkable except as noted in HPI and below Constitutional: Constitutional: Reports as per HPI and Reports no additional constitutional complaints Eyes: Eyes: Reports as per HPI and Reports no additional eye complaints ENT: Reports system reviewed and no additional complaints, except as documented and Reports Normal hearing present Cardiovascular: Cardiovascular: Reports no additional cardiovascular complaints Respiratory: Respiratory: Reports no additional respiratory complaints and Reports no additional respiratory complaints Gastrointestinal: Gastrointestinal: Reports as per HPI and Reports no additional gastrointestinal complaints Musculoskeletal: Musculoskeletal: Reports no additional musculoskeletal complaints Integumentary/Breasts: Skin/Breast: Reports system reviewed and no additional complaints, except as docu and Reports as per HPI Neurologic: Reports system reviewed and no additional complaints, except as documented, Reports as per HPI and Reports Normal hearing present Psychiatric: Psychiatric: Reports no additional psychiatric complaints and Reports as per HPI Endocrine: Endocrine: Reports no additional endocrine complaints Hematologic/Lymphatic: Hematologic/Lymphatic: Reports no additional hematologic/lymphatic complaints Allergic/Immunologic: Allergic/Immunologic: Reports no additional allergic/immunologic complaints [facility] Past Medical History Medical History (Updated 01/07/22 @ 23:40 by Josi Giang NP) Atrial fibrillation with RVR Coronary artery disease Dementia DVT (deep venous thrombosis) Essential hypertension GERD (gastroesophageal reflux disease) Hx of Laboy's palsy Hyperlipidemia Hypernatremia Hypothyroidism Osteomyelitis of right shoulder August 2018-November 2018 Pneumonia Pneumonia due to COVID-19 virus Rheumatoid arthritis Sepsis Septic shock Swelling of left lower extremity Thrush, oral Tobacco depe
--- NOTE | 2022-01-07 20:37 | PC.NURSE ---
when going to take pt to assigned room, pt had what resembled a 30 sec seizure. pt stared off to the left, airway started to foam and was unable to open mouth due to stiffness. dr Ellison called to bedside to assess the pt pt bed now changed to tele, charge authorizer aware pt back to baseline per staff and daughter in room
[2022-01-07] MEDS: SODIUM CHLORIDE 0.9% IV 1,000 ML 75 ML IV CONT (23:00)
[2022-01-07 23:12] LABS: Lactic Acid 3.7 mmol/L (0.7-2.0)
[2022-01-08] VITALS: PULSE 66
[2022-01-08 00:22] LABS: Glucose Point of Care 324 mg/dl (65-105)
[2022-01-08 00:50] LABS: Hemoglobin A1C 8.6 % (<5.7)
[2022-01-08 04:00] VITALS: PULSE 67
[2022-01-08] MEDS: LEVOTHYROXINE SODIUM INJ 100 MCG/5 ML VIAL 44 MCG IV PUSH (05:40)
[2022-01-08 05:41] LABS: Sodium Urine Random 74 meq/L
[2022-01-08 05:47] LABS: Glucose Point of Care 284 mg/dl (65-105)
[2022-01-08 05:58] VITALS: BP 98/46; PULSE 75; RESP 22; TEMP 36.2; O2SAT 99
[2022-01-08 06:16] LABS: Glucose Point of Care 293 mg/dl (65-105)
[2022-01-08 07:38] LABS: Basophils Percent Auto 0.2 % (0.2-1.2); Eosinophils Percent Auto 0.1 % (0-4.4); Hematocrit 29.1 % (37.0-47.0); Hemoglobin 10.2 g/dL (12.0-15.0); Immature Granulocyte Absolute 0.08 K/mm3 (0.00-0.031); Immature Granulocyte Percent A 0.5 % (0-0.5); Lymphocytes Absolute Auto 1.28 K/mm3 (0.9-3.2); Lymphocytes Percent Auto 8.3 % (18.3-44.2); Mean Corpuscular HGB Conc 35.1 g/dl (32-36); Mean Corpuscular Hemoglobin 31.7 pg (26-34); Mean Corpuscular Volume 90.4 fl (80-100); Mean Platelet Volume 12.2 fl (7.4-10.4); Monocytes Absolute Auto 0.6 K/mm3 (0.1-0.6); Monocytes Percent Auto 3.8 % (2.6-8.5); Neutrophils Absolute Auto 13.4 K/mm3 (1.3-6.7); Neutrophils Percent Auto 87.1 % (45.5-73.1); Platelet Count Result 197 k/mm3 (150-375); Red Blood Count 3.22 M/mm3 (4.2-5.4); Red Cell Distribution Width 14.2 % (11.5-14.5); White Blood Count 15.4 K/mm3 (4.5-10.0)
[2022-01-08 08:00] VITALS: PULSE 63
[2022-01-08 08:14] LABS: Alanine Aminotransferase 16 U/L (6-35); Albumin Level 3.9 g/dL (3.5-5.1); Alkaline Phosphatase 100 U/L (38-126); Anion Gap 15 mmol/L (8-16); Aspartate Amino Transferase 28 U/L (14-36); Bilirubin,Total 0.8 mg/dL (0.2-1.3); Blood Urea Nitrogen 44 mg/dL (7-17); Calcium 8.5 mg/dL (8.4-10.2); Carbon Dioxide 37 mmol/L (22-30); Chloride 76 mmol/L (98-107); Estimated CRCL calculation 50 ml/min; Estimated Glomerular Filt Rate > 60; Glucose 285 mg/dL (65-110); Potassium 2.7 mmol/L (3.4-5.0); Sodium 128 mmol/L (137-145)
[2022-01-08] MEDS: POLYMYXIN/TRIMETHOPRIM OPHTH 10 ML DROPS 1 DROP EACH EYE (08:54)
[2022-01-08] MEDS: levETIRAcetam 500MG/NACL 100ML 500 MG/100 ML BAG 400 MG IVPB (08:54)
--- NOTE | 2022-01-08 10:33 | PCSTNOTE ---
MBS on hold and may be discharged due to unresponsiveness this morning.
--- NOTE | 2022-01-08 10:47 | WPDNEURCNPN ---
Assessment and Plan Assessment and plan (1) Dementia: Code(s): F03.90 - Unspecified dementia, unspecified severity, without behavioral disturbance, psychotic disturbance, mood disturbance, and anxiety Status: Acute (2) Seizure-like activity: Code(s): R56.9 - Unspecified convulsions Status: Acute (3) Acute UTI (urinary tract infection): Code(s): N39.0 - Urinary tract infection, site not specified Status: Acute (4) Acute hyponatremia: Code(s): E87.1 - Hypo-osmolality and hyponatremia Status: Acute Plan progressive dementia with acute UTI for which patient is being treated with the broad-spectrum antibiotic and patient has been started on Keppra metabolic encephalopathy with electrolyte imbalance and treated Consult date: 01/08/22 HPI: Bhumi Levin is a 76 year old female admitted to the hospital through the emergency room where she was sent by the [facility] for abnormal labs but on arrival in the emergency room she was noted to be hypoxic with oxygen sat of 88% and was placed on 2L nasal cannula she was also noted to have change in the mental status and was also nonverbal, her medications included aspirin 81 mg daily atorvastatin 20 mg daily divalproex 250 mg twice a day and levothyroxine 137 micro g daily, she was afebrile with respiration of 22 blood pressure 107/77 pulse ox of 96%, normal CBC, BMP with 49 of BUN blood sugar of 398 and sodium of 122 a seem 2.3, influenza and starts COVID were negative CT scan of the head was negative with no evidence of bleed though there was central and cortical atrophy chest x-ray was also fairly normal, she does have ongoing history of atrial fibrillation with rapid ventricular response, with underlying coronary artery disease, and also dementia, she does have DNR status. [facility] Past Medical History Medical History (Updated 01/07/22 @ 23:40 by Josi Giang, DENNIS) Atrial fibrillation with RVR Coronary artery disease Dementia DVT (deep venous thrombosis) Essential hypertension GERD (gastroesophageal reflux disease) Hx of Laboy's palsy Hyperlipidemia Hypernatremia Hypothyroidism Osteomyelitis of right shoulder August 2018-November 2018 Pneumonia Pneumonia due to COVID-19 virus Rheumatoid arthritis Sepsis Septic shock Swelling of left lower extremity Thrush, oral Tobacco dependence Type 2 diabetes mellitus Urinary obstruction Vitamin D deficiency Surgical History Surgical History History of appendectomy History of hysterectomy for cancer Endometrial/uterine cancer Hx of tonsillectomy Previous back surgery Family History Family History Father Parkinson disease Other Hypertension Social History Social History (Updated 01/07/22 @ 23:25 by Josi Giang NP) Social History: The patient is and only has one daughter. The patient is retired from medical billing Primary care physician: Dr. Aisha Mata Code status: DNR/DNI Smoking status: Former smoker Tobacco type: cigarettes Smoking end date: 06/21/14 Alcohol intake: unknown Substance use: unknown Additional living arrangements comments: [facility]. Gender identity (if verbalized by the patient): Female Spiritual care concerns: No Agree to blood products: Yes Meds Home Medications and Allergies Home Medications Medication Instructions Recorded Confirmed Type acetaminophen 650 mg rectal 650 mg RECTAL Q6H PRN Fever 01/07/22 01/07/22 History suppository bisacodyl 10 mg rectal suppository 10 mg RECTAL DAILY PRN Constipation 01/07/22 01/07/22 History (Dulcolax (bisacodyl)) furosemide 40 mg tablet 40 mg PO DAILY 01/07/22 01/07/22 History levothyroxine 88 mcg tablet 88 mcg PO DAILY 01/07/22 01/07/22 History metolazone 5 mg tablet 5 mg PO DAILY 01/07/22 01/07/22 History ro
[2022-01-08] MEDS: POTASSIUM CHLORIDE INJ 40 MEQ in SODIUM CHLORIDE 0.9% IV 500 ML 130 MEQ IVPB (11:02)
[2022-01-08 11:14] LABS: Free T4 Free Thyroxine Reflex 0.61 ng/dL (0.78-2.19)
[2022-01-08 12:00] VITALS: PULSE 66
[2022-01-08 12:16] LABS: Glucose Point of Care 277 mg/dl (65-105)
--- NOTE | 2022-01-08 12:21 | PM.IMPN ---
Progress Note: A&P Assessment and Plan (1) Acute UTI (urinary tract infection): Code(s): N39.0 - Urinary tract infection, site not specified Status: Acute Assessment and Plan: -the patient was started on Rocephin. Tailor antibiotics to cultures. -blood and urine cultures are pending. -patient has leukocytosis of white blood cells 13.4. -patient's pulse is 96 and her blood pressure is 111/38 and she meets sepsis protocol. -her lactic levels were 3.4 and 3.7. -continue with IV fluids. (2) Seizure-like activity: Code(s): R56.9 - Unspecified convulsions Status: Acute Assessment and Plan: -the patient has no prior history of having seizures. -unsure of etiology. The patient's sodium is low. -an EEG has been ordered for tomorrow. -a consultation for neurology has been placed and their input was greatly be appreciated. -Keppra has been started on the patient. -her sodium initially was 122. We are now rechecking her sodium level again. Check urine for osmolarity and sodium. (3) Acute hyponatremia: Code(s): E87.1 - Hypo-osmolality and hyponatremia Status: Acute Assessment and Plan: -the patient has been on metolazone as well as Lasix. This may have cause low sodium. -I am going to hold her metolazone and Lasix for now. (4) Acute hypokalemia: Code(s): E87.6 - Hypokalemia Status: Acute Assessment and Plan: -we are replacing her potassium. -We are rechecking levels now. -the patient has been on diuretics. (5) Hypothyroidism: Code(s): E03.9 - Hypothyroidism, unspecified Status: Acute Assessment and Plan: -check thyroid level -we can continue with levothyroxine in the IV dose. (6) Type 2 diabetes mellitus with hyperosmolar hyperglycemic state (HHS): Code(s): E11.00 - Type 2 diabetes mellitus with hyperosmolarity without nonketotic hyperglycemic-hyperosmolar coma (NKHHC); E11.65 - Type 2 diabetes mellitus with hyperglycemia Status: Acute Assessment and Plan: -Accu-Cheks every 6 hours. -sliding scale insulin -hypoglycemic protocol. (7) Dementia: Code(s): F03.90 - Unspecified dementia, unspecified severity, without behavioral disturbance, psychotic disturbance, mood disturbance, and anxiety Status: Acute Assessment and Plan: -the patient was placed on hospice due to end-stage dementia. The patient is now nonverbal. I a.m. ordering a swallow study is I fear that the patient may be aspirating. I did consult client care consultant as the daughter is wanting to look into a different hospice company and possibly get the patient back on hospice again. Plan need to discuss with Case Management after the speak with the family regarding hospice situation. Subjective Date/time seen: 01/08/22 12:21 Patient is nonverbal today. Exam Const: General: cooperative, comfortable, no acute distress, well developed, alert, awake, average body habitus, well nourished and overweight Nutritional Appearance: average body habitus, well nourished and overweight Orientation/consciousness: oriented to person Limitations: no limitations Other: The daughter is at the bedside answering questions for the patient. The patient is nonverbal. HENMT: Head: normal to inspection, No palpable skull fracture present, normocephalic and atraumatic Ears: external ears normal Face/Nose/Sinus: Normal external nose present and Normal nares present Eyes: General: appearance normal, both eyes and all related structures Alignment and Position: alignment normal Sclera: sclerae normal Pupils: Equal, round and reactive pupils present EOM: EOMs intact bilaterally Other: The patient has thick yellow drainage from both eyes. Neck: Neck: normal visual inspection, full ROM, no lymphadenopathy, trachea midline and supple Chest: Chest palpation & inspection: normal inspection of the chest Resp: Effort & Inspection: normal respiratory effort
[2022-01-08 13:15] LABS: Anion Gap 10 mmol/L (8-16); Blood Urea Nitrogen 40 mg/dL (7-17); Calcium 8.5 mg/dL (8.4-10.2); Carbon Dioxide 37 mmol/L (22-30); Chloride 80 mmol/L (98-107); Estimated CRCL calculation 50 ml/min; Estimated Glomerular Filt Rate > 60; Glucose 272 mg/dL (65-110); Sodium 127 mmol/L (137-145)
[2022-01-08 14:00] VITALS: BP 108/50; PULSE 66; RESP 20; TEMP 36.2; O2SAT 91
--- NOTE | 2022-01-11 10:30 | NEURO_ITS ---
This report was moved to the correct visit on 01/11/22. Original report was signed by Rosetta Lock MD on 01/11/22 1107. Neurology EEG Report General Information Date of Study: 01/08/22 TEST Routine EEG DIAGNOSIS New onset seizure CONDITION OF RECORDING Sleeping EEG NUMBER [id number] CLINICAL HISTORY Patient has been on hospice for end stage dementia but recently had new onset seizure. Patient was asleep through the entire EEG setup and recording. EEG DESCRIPTION Awake state was not captured during the recording so no clear posterior dominant rhythm is observed. The recording is continuous. There is a well developed anterior-posterior gradient. No significant asymmetries of background activities are noted. The background consists of mostly of theta and delta range activity. Sleep architecture in the form of K complexes and symmetrical spindles are present. There are no epileptiform discharges or seizures during this recording. Hyperventilation and photic stimulation were not performed. IMPRESSION This is a normal routine EEG recorded in sleep state. There are no electrographic seizures identified, nor are there any epileptiform discharges. Please note that a normal EEG cannot exclude a seizure disorder. For more thorough evaluation, consider repeating EEG during awake state. Clinical correlation is recommended. This dictation may have been done utilizing a voice recognition system. Attempts have been made to correct errors. However, there may be uncorrected grammatical, spelling, and recognition errors present. Report Initialized date/time: Rosetta Lock MD 01/11/22 / 1030 Electronically signed by: Rosetta Lock MD 01/11/221106 [facility]
--- NOTE | 2022-01-12 13:30 | PM.DS ---
DS: Admitting Diagnosis Discharge Date 01/08/22 Admitting Diagnosis end-stage dementia, seizure DS: Discharge Diagnosis Discharge Diagnosis (1) Acute UTI (urinary tract infection): Code(s): N39.0 - Urinary tract infection, site not specified Status: Acute Assessment and Plan: -the patient was started on Rocephin. Tailor antibiotics to cultures. -blood and urine cultures are pending. -patient has leukocytosis of white blood cells 13.4. -patient's pulse is 96 and her blood pressure is 111/38 and she meets sepsis protocol. -her lactic levels were 3.4 and 3.7. -continue with IV fluids. (2) Seizure-like activity: Code(s): R56.9 - Unspecified convulsions Status: Acute Assessment and Plan: -the patient has no prior history of having seizures. -unsure of etiology. The patient's sodium is low. -an EEG has been ordered for tomorrow. -a consultation for neurology has been placed and their input was greatly be appreciated. -Keppra has been started on the patient. -her sodium initially was 122. We are now rechecking her sodium level again. Check urine for osmolarity and sodium. (3) Acute hyponatremia: Code(s): E87.1 - Hypo-osmolality and hyponatremia Status: Acute Assessment and Plan: -the patient has been on metolazone as well as Lasix. This may have cause low sodium. -I am going to hold her metolazone and Lasix for now. (4) Acute hypokalemia: Code(s): E87.6 - Hypokalemia Status: Acute Assessment and Plan: -we are replacing her potassium. -We are rechecking levels now. -the patient has been on diuretics. (5) Hypothyroidism: Code(s): E03.9 - Hypothyroidism, unspecified Status: Acute Assessment and Plan: -check thyroid level -we can continue with levothyroxine in the IV dose. (6) Type 2 diabetes mellitus with hyperosmolar hyperglycemic state (HHS): Code(s): E11.00 - Type 2 diabetes mellitus with hyperosmolarity without nonketotic hyperglycemic-hyperosmolar coma (NKHHC); E11.65 - Type 2 diabetes mellitus with hyperglycemia Status: Acute Assessment and Plan: -Accu-Cheks every 6 hours. -sliding scale insulin -hypoglycemic protocol. (7) Dementia: Code(s): F03.90 - Unspecified dementia, unspecified severity, without behavioral disturbance, psychotic disturbance, mood disturbance, and anxiety Status: Acute Assessment and Plan: -the patient was placed on hospice due to end-stage dementia. The patient is now nonverbal. I a.m. ordering a swallow study is I fear that the patient may be aspirating. I did consult care support representative as the daughter is wanting to look into a different hospice company and possibly get the patient back on hospice again. Plan need to discuss with Case Management after the speak with the family regarding hospice situation. DS: Summary Hospital Course Hospital Course: patient is 76-year-old female with history of end-stage dementia. Patient was previously on hospice per recently came off hospice. Patient was nonverbal had some abnormal blood work and came into the ER. While in the ER she had a seizure. After lengthy discussion between nurse practitioner in Family patient was made hospice. Patient will transfer patient to inpatient hospice Time Spent with Patient Time attestation: Total time spent providing and/or coordinating discharge services: Exam Const: General: cooperative, comfortable, no acute distress, well developed, average body habitus, well nourished and overweight Nutritional Appearance: average body habitus, well nourished and overweight Orientation/consciousness: oriented to person Other: The daughter is at the bedside answering questions for the patient. The patient is nonverbal. HENMT: Head: normal to inspection, No palpable skull fracture present, normocephalic and atraumatic Ears: external ears normal Face/Nose/Sinus: Normal external nose pr
[2022-01-12 17:12] LABS: Osmolality, Urine 461 mOsm/kg (50-1200)
== END 2022-01-08 16:48 | disposition hospice, inpatient (51) ==
LOC: ANHED 19:23 → ANH3MEDSUR 21:23
PROVIDERS: Nurse Practitioner; Admitting Provider Internal Medicine; Emergency Provider Emergency Medicine; PCP Family Medicine; Visit Provider Chiropractor
DX: N39.0 Urinary tract infection, site not specified (principal); B96.4 Proteus (mirabilis) (morganii) as the cause of diseases classified elsewhere; B95.7 Other staphylococcus as the cause of diseases classified elsewhere; R56.9 Unspecified convulsions; E87.1 Hypo-osmolality and hyponatremia; E87.6 Hypokalemia; E03.9 Hypothyroidism, unspecified; E11.65 Type 2 diabetes mellitus with hyperglycemia; F03.90 Unspecified dementia, unspecified severity, without behavioral disturbance, psychotic disturbance, mood disturbance, and anxiety; R09.02 Hypoxemia; R41.82 Altered mental status, unspecified; I25.10 Atherosclerotic heart disease of native coronary artery without angina pectoris; I10 Essential (primary) hypertension; K21.9 Gastro-esophageal reflux disease without esophagitis; Z20.822 Contact with and (suspected) exposure to COVID-19; E78.5 Hyperlipidemia, unspecified; M06.9 Rheumatoid arthritis, unspecified; Z66 Do not resuscitate; R94.31 Abnormal electrocardiogram [ECG] [EKG]; I48.91 Unspecified atrial fibrillation; Z82.49 Family history of ischemic heart disease and other diseases of the circulatory system; Z86.718 Personal history of other venous thrombosis and embolism; Z86.73 Personal history of transient ischemic attack (TIA), and cerebral infarction without residual deficits; Z79.82 Long term (current) use of aspirin; Z87.891 Personal history of nicotine dependence; Z79.899 Other long term (current) drug therapy
CPT/HCPCS: 36415; 70450; 71045; 80048; 80053; 81001; 82550; 82948; 83036; 83605; 83735; 83935; 84300; 84439; 84443; 85025; 85610; 85730; 87040; 87077; 87086; 87147; 87181; 87186; 87636; 93005; 93970; 95816; 96365; 96366; 96367; 96375; 96376; 99285; A9270; G0378; J0696; J1953; J3480; J7030; J7040

== ENCOUNTER 2022-01-08 16:47 | HOS | payer OTHER, MEDICARE, SELFPAY ==
--- OUTSIDE RECORDS SUMMARY | 2022-01-08 17:00 | XMS_ITS ---
:1945 Author Care Team Providers Name Role Phone DR. COLEEN PEREZ Primary Care Provider [phone] COLEEN PEREZ Referring Provider [phone] Allergies Code Code System Name Reaction Severity Status Onset 2670 RxNorm Codeine ? ? Active ? Medications Name Status Start Date Stop Date ? ? atorvastatin 20 mg tablet Active ? Not av ailable Take 1 tablet every day by oral route. Cozaar 100 mg tablet Active ? Not availab le Take 1 tablet every day by oral route. Flonase Allergy Relief 50 mcg/actuation nasal spray,suspension A ctive ? Not available [place] 2 sprays every day by intranasal route. hydrocodone 5 mg-acetaminophen 325 mg tablet Active ? Not available Take 1 tablet every 6 hours by oral route. Lantus Solostar U-100 Insulin 100 unit/mL (3 mL) subcutaneous pe n Active ? Not available Inject by subcutaneous route. levothyroxine Active ? Not available meloxicam 15 mg tablet Active ? Not avail able Take 1 tablet every day by oral route. Problems Name Status Onset Date Source ? Disorder of Shoulder Active ? ? Procedures None recorded. Results Lab Results None recorded. Past Encounters None recorded. Social History None recorded. Vaccine List None recorded. Plan of Care Reminders Provider Appointments None recorded. ? ? Lab None recorded. ? ? Referral None recorded. ? ? Procedures None recorded. ? ? Surgeries None recorded. ? ? Imaging None recorded. ? ? Vitals None recorded.
[2022-01-08 17:09] VITALS: O2SAT 91; BMI 36.6
[2022-01-08] MEDS: HYDROmorphone HCL/PF (*CRX) 50 MG in SODIUM CHLORIDE 0.9% IV 95 ML IV CONT (17:51)
[2022-01-08] MEDS: GLYCOPYRROLATE INJ (*SP) 0.2 MG/ML VIAL 0.1 MG IV PUSH (17:56)
[2022-01-08 21:45] VITALS: BP 115/55; PULSE 62; RESP 20; TEMP 36.6; O2SAT 98
--- NOTE | 2022-01-08 22:33 | PM.IMHP ---
H&P: HPI History of Present Illness Date/Time: 01/08/22 22:33 Chief Complaint: uncontrolled dyspnea Narrative: 76 y/o f w/ dementia was on hospice service for about 6 months but discharged around 09/2021 due to stabilization. Recently however, she has decreased intake and declining mental status. When brought to ED by EMS she was found to be hyponatremic,hypokalemic, dehydrated with TYLOR. While in ED she experienced tonic-clonic seizure like activity. CT brain was negative and CXR was c/w atelectasis vs pneumonia. U/a was ABNL and WBC was 15.4. She was treated with fluid resuscitation, Keprra, and ceftriaxone. After failure to improve overnight, her family opted for comfort care with inpatient hospice service. She had no further seizures, but is very congested, dyspneic, and restless. Review of Systems Review of Systems: ROS unobtainable: Yes unobtainable due to medical condition PMFSH Past Medical History Medical History Atrial fibrillation with RVR Coronary artery disease Dementia DVT (deep venous thrombosis) Essential hypertension GERD (gastroesophageal reflux disease) Hx of Laboy's palsy Hyperlipidemia Hypernatremia Hypothyroidism Osteomyelitis of right shoulder August 2018-November 2018 Pneumonia Pneumonia due to COVID-19 virus Rheumatoid arthritis Sepsis Septic shock Swelling of left lower extremity Thrush, oral Tobacco dependence Type 2 diabetes mellitus Urinary obstruction Vitamin D deficiency Surgical History Surgical History History of appendectomy History of hysterectomy for cancer Endometrial/uterine cancer Hx of tonsillectomy Previous back surgery Family History Family History Father Parkinson disease Other Hypertension Social History Social History Social History: The patient is and only has one daughter. The patient is retired from medical billing Primary care physician: Dr. iAsha Mata Code status: DNR/DNI Smoking status: Former smoker Tobacco type: cigarettes Smoking end date: 06/21/14 Alcohol intake: unknown Substance use: unknown Additional living arrangements comments: [facility]. Gender identity (if verbalized by the patient): Female Spiritual care concerns: No Agree to blood products: Yes Meds Home Medications and Allergies Allergies Allergy/AdvReac Type Severity Reaction Status Date / Time codeine AdvReac Mild NAUSEA Verified 01/08/22 18:33 Vital Signs Vital Signs - 24 hr 01/08/22 17:09 01/08/22 21:45 Temperature 97.8 F Pulse Rate 62 Respiratory Rate 20 Blood Pressure 115/55 L Pulse Oximetry 91 98 Oxygen Delivery Nasal Cannula Oxygen Flow Rate 2 Exam Narrative: Sleeping and does not respond to tactile or verbal stimuli Neck no jvd Chest coarse BS with diffuse coarse crackles Heart RR Abd BS hypoactive, soft Extr no pitting edema MS no gross deformities to visual inspection Neuro CN symmetric to inspection, LUE with flexed posturing Assessment and Plan Assessment and plan (1) Palliative care encounter: Code(s): Z51.5 - Encounter for palliative care Status: Acute Assessment and Plan: Meets inpatient hospice criteria due to requiring continuous IV hydromorphone for control of dispnea and discomfort Remainder of palliative regimen as ordered (2) Septic shock: Code(s): A41.9 - Sepsis, unspecified organism; R65.21 - Severe sepsis with septic shock Status: Acute (3) Dementia: Code(s): F03.90 - Unspecified dementia, unspecified severity, without behavioral disturbance, psychotic disturbance, mood disturbance, and anxiety Status: Acute (4) Seizure-like activity: Code(s): R56.9 - Unspecified convulsions Status
[2022-01-09] MEDS: GLYCOPYRROLATE INJ (*SP) 0.2 MG/ML VIAL 0.1 MG IV PUSH ×2 (03:11→08:11)
[2022-01-09 06:52] VITALS: BP 107/51; PULSE 73; RESP 15; TEMP 36.6; O2SAT 68
[2022-01-09 08:00] VITALS: BP 112/50; PULSE 85; RESP 14; TEMP 36.7; O2SAT 76; O2SAT 78
--- NOTE | 2022-01-09 09:18 | PM.IMPN ---
Progress Note: A&P Assessment and Plan (1) Palliative care encounter: Code(s): Z51.5 - Encounter for palliative care Status: Acute Assessment and Plan: Meets inpatient hospice criteria due to requiring continuous IV hydromorphone for control of dispnea and discomfort Remainder of palliative regimen as ordered (2) Septic shock: Code(s): A41.9 - Sepsis, unspecified organism; R65.21 - Severe sepsis with septic shock Status: Acute (3) Dementia: Code(s): F03.90 - Unspecified dementia, unspecified severity, without behavioral disturbance, psychotic disturbance, mood disturbance, and anxiety Status: Acute (4) Seizure-like activity: Code(s): R56.9 - Unspecified convulsions Status: Acute (5) Acute UTI (urinary tract infection): Code(s): N39.0 - Urinary tract infection, site not specified Status: Acute (6) Acute hyponatremia: Code(s): E87.1 - Hypo-osmolality and hyponatremia Status: Acute (7) Type 2 diabetes mellitus with hyperosmolar hyperglycemic state (HHS): Code(s): E11.00 - Type 2 diabetes mellitus with hyperosmolarity without nonketotic hyperglycemic-hyperosmolar coma (NKHHC); E11.65 - Type 2 diabetes mellitus with hyperglycemia Status: Acute Subjective Date/time seen: 01/09/22 09:18 Interval history: Palliative f/u. Remains comfortable. No new issues overnight. Review of Systems Review of Systems: ROS unobtainable: Yes unobtainable due to medical condition Exam Narrative: Sleeping and does not respond to tactile or verbal stimuli Neck no jvd Chest coarse BS with diffuse coarse crackles Heart RR Abd BS hypoactive, soft Extr 1+ pitting ankle edema MS no gross deformities to visual inspection Neuro CN symmetric to inspection, Objective Data Vital Signs Vital Signs: Vital Signs - 24 hr 01/08/22 17:09 01/08/22 21:45 01/09/22 06:52 Temperature 97.8 F 97.9 F Pulse Rate 62 73 Respiratory Rate 20 15 Blood Pressure 115/55 L 107/51 L Pulse Oximetry 91 98 68 L Oxygen Delivery Nasal Cannula Oxygen Flow Rate 2 01/09/22 08:00 Temperature 98.0 F Pulse Rate 85 Respiratory Rate 14 Blood Pressure 112/50 L Pulse Oximetry 76 L Oxygen Delivery Oxygen Flow Rate Intake/Output Intake/Output: Intake & Output 01/06/22 01/07/22 01/08/22 01/09/22 23:59 23:59 23:59 23:59 Intake Total 0 Output Total 1200 Balance -1200 Meds/Results Medications: Active Medications Generic Name Dose Route Start Last Admin Trade Name Freq PRN Reason Stop Dose Admin Artificial Tears 0 drop 01/08/22 17:25 Artificial Tears Ophth Soln 15 Ml Bottle EACH EYE Q12H PRN Dry Eye(s) Bisacodyl 10 mg 01/08/22 17:25 Bisacodyl 10 Mg Suppository RECTAL DAILY PRN Constipation Diazepam 5 mg 01/08/22 17:24 Diazepam Inj (*Crx) 10 Mg/2 Ml Syringe IV PUSH Q4H PRN RESTLESSNESS Glycopyrrolate 0.1 mg 01/08/22 17:25 01/09/22 08:11 Glycopyrrolate Inj (*Sp) 0.2 Mg/Ml Vial IV PUSH 0.1 mg Q4H PRN Administration secretions Hydromorphone HCl 0.5 mg 01/08/22 17:23 Hydromorphone Hcl Inj (*Crx) 1 Mg/Ml Syr IV PUSH Q2H PRN PAIN/SOB Hydromorphone HCl 50 mg/ 100 mls @ 0.5 mls/hr 01/08/22 17:20 01/08/22 17:51 Sodium Chloride IV CONT 0.25 mg/hr .Q24H JELANI 0.5 mls/hr Administration 0.25 MG/HR Prochlorperazine Edisylate 10 mg 01/08/22 17:25 Prochlorperazine Edisylate 10 Mg/2 Ml Vial IV PUSH Q6H PRN Nausea And Vomiting
[2022-01-09] MEDS: HYDROmorphone HCL/PF (*CRX) 50 MG in SODIUM CHLORIDE 0.9% IV 95 ML IV CONT (18:42)
[2022-01-09 20:00] VITALS: BP 115/51; PULSE 75; RESP 12; TEMP 36.5; O2SAT 89
[2022-01-10 08:00] VITALS: BP 61/31; PULSE 107; RESP 12; TEMP 36.8; O2SAT 58; O2SAT 67
[2022-01-10] MEDS: GLYCOPYRROLATE INJ (*SP) 0.2 MG/ML VIAL 0.1 MG IV PUSH ×2 (08:00→11:30)
[2022-01-10] MEDS: ARTIFICIAL TEARS OPHTH SOLN 15 ML BOTTLE EACH EYE (09:00)
[2022-01-10] MEDS: diazePAM INJ (*CRX) 10 MG/2 ML SYRINGE 5 MG IV PUSH (09:23)
--- NOTE | 2022-01-10 13:17 | PC.NURSE ---
hospice nurse here to see patient. patient having secretions still. glycopyrrolate given early at 1130. Dr. Carr would like dilaudid drip to be increased to try to help decreased secretions. bolus dilaudid to be increased also.
--- NOTE | 2022-01-10 14:30 | PM.IMPN ---
Progress Note: A&P Assessment and Plan (1) Palliative care encounter: Code(s): Z51.5 - Encounter for palliative care Status: Acute Assessment and Plan: Meets inpatient hospice criteria due to requiring continuous IV hydromorphone for control of dispnea and discomfort Remainder of palliative regimen as ordered (2) Septic shock: Code(s): A41.9 - Sepsis, unspecified organism; R65.21 - Severe sepsis with septic shock Status: Acute (3) Dementia: Code(s): F03.90 - Unspecified dementia, unspecified severity, without behavioral disturbance, psychotic disturbance, mood disturbance, and anxiety Status: Acute (4) Seizure-like activity: Code(s): R56.9 - Unspecified convulsions Status: Acute (5) Acute UTI (urinary tract infection): Code(s): N39.0 - Urinary tract infection, site not specified Status: Acute (6) Acute hyponatremia: Code(s): E87.1 - Hypo-osmolality and hyponatremia Status: Acute (7) Type 2 diabetes mellitus with hyperosmolar hyperglycemic state (HHS): Code(s): E11.00 - Type 2 diabetes mellitus with hyperosmolarity without nonketotic hyperglycemic-hyperosmolar coma (NKHHC); E11.65 - Type 2 diabetes mellitus with hyperglycemia Status: Acute Subjective Date/time seen: 01/10/22 14:30 Interval history: Palliative f/u Required glycopyrrolate and increase hydromorphone this afternoon. Sleeping comfortably since. Family at bedside. Review of Systems Review of Systems: ROS unobtainable: Yes unobtainable due to medical condition Exam Narrative: Sleeping and does not respond to tactile or verbal stimuli Neck no jvd Chest coarse BS with diffuse coarse crackles Heart RR Abd BS hypoactive, soft Extr 1+ pitting ankle edema MS no gross deformities to visual inspection Neuro CN symmetric to inspection, Objective Data Vital Signs Vital Signs: Vital Signs - 24 hr 01/09/22 20:00 01/10/22 08:00 01/10/22 08:00 Temperature 97.7 F 98.2 F Pulse Rate 75 107 H Respiratory Rate 12 12 Blood Pressure 115/51 L 61/31 L Pulse Oximetry 89 L 58 L 67 L Oxygen Delivery Nasal Cannula Oxygen Flow Rate 2 Intake/Output Intake/Output: Intake & Output 01/07/22 01/08/22 01/09/22/20/22 23:59 23:59 23:59 23:59 Intake Total 12.3 0 Output Total 1400 50 Balance -1387.7 -50 Meds/Results Medications: Active Medications Generic Name Dose Route Start Last Admin Trade Name Freq PRN Reason Stop Dose Admin Artificial Tears 0 drop 01/08/22 17:25 01/10/22 09:00 Artificial Tears Ophth Soln 15 Ml Bottle EACH EYE 1 drop Q12H PRN Administration Dry Eye(s) Bisacodyl 10 mg 01/08/22 17:25 Bisacodyl 10 Mg Suppository RECTAL DAILY PRN Constipation Diazepam 5 mg 01/08/22 17:24 01/10/22 09:23 Diazepam Inj (*Crx) 10 Mg/2 Ml Syringe IV PUSH 5 mg Q4H PRN Administration RESTLESSNESS Glycopyrrolate 0.1 mg 01/08/22 17:25 01/10/22 11:30 Glycopyrrolate Inj (*Sp) 0.2 Mg/Ml Vial IV PUSH 0.1 mg Q4H PRN Administration secretions Hydromorphone HCl 1 mg 01/10/22 13:21 Hydromorphone Hcl Inj (*Crx) 1 Mg/Ml Syr IV PUSH Q2H PRN PAIN/SOB Hydromorphone HCl 50 mg/ 100 mls @ 1 mls/hr 01/08/22 17:20 01/10/22 13:00 Sodium Chloride IV CONT 0.5 mg/hr .Q24H JELANI 1 mls/hr Infusion 0.5 MG/HR Prochlorperazine Edisylate 10 mg 01/08/22 17:25 Prochlorperazine Edisylate 10 Mg/2 Ml Vial IV PUSH Q6H PRN Nausea And Vomiting
[2022-01-10] MEDS: HYDROmorphone HCL/PF (*CRX) 50 MG in SODIUM CHLORIDE 0.9% IV 95 ML IV CONT (18:10)
[2022-01-10 20:00] VITALS: BP 84/41; PULSE 68; RESP 10; TEMP 35.8; O2SAT 67; O2SAT 91
[2022-01-11 06:00] VITALS: RESP 8
[2022-01-11 08:00] VITALS: O2SAT 95
--- NOTE | 2022-01-11 10:20 | WPDNEUROLOGY ---
Neurology EEG Report General Information Date of Study: 01/08/22 TEST Routine EEG DIAGNOSIS New onset seizure CONDITION OF RECORDING Sleeping EEG NUMBER [id number] CLINICAL HISTORY Patient has been on hospice for end stage dementia but recently had new onset seizure. Patient was asleep through the entire EEG setup and recording. EEG DESCRIPTION Awake state was not captured during the recording so no clear posterior dominant rhythm is observed. The recording is continuous. There is a well developed anterior-posterior gradient. No significant asymmetries of background activities are noted. The background consists of mostly of theta and delta range activity. Sleep architecture in the form of K complexes and symmetrical spindles are present. There are no epileptiform discharges or seizures during this recording. Hyperventilation and photic stimulation were not performed. IMPRESSION This is a normal routine EEG recorded in sleep state. There are no electrographic seizures identified, nor are there any epileptiform discharges. Please note that a normal EEG cannot exclude a seizure disorder. For more thorough evaluation, consider repeating EEG during awake state. Clinical correlation is recommended.
[2022-01-11] MEDS: diazePAM INJ (*CRX) 10 MG/2 ML SYRINGE 5 MG IV PUSH (12:34)
[2022-01-11 14:00] VITALS: BP 95/37; PULSE 68; RESP 8; TEMP 36.6; O2SAT 95
[2022-01-11] MEDS: GLYCOPYRROLATE INJ (*SP) 0.2 MG/ML VIAL 0.1 MG IV PUSH (16:07)
[2022-01-11] MEDS: HYDROmorphone HCL/PF (*CRX) 50 MG in SODIUM CHLORIDE 0.9% IV 95 ML IV CONT (17:40)
--- NOTE | 2022-01-11 19:43 | PM.IMPN ---
Progress Note: A&P Assessment and Plan (1) Palliative care encounter: Code(s): Z51.5 - Encounter for palliative care Status: Acute Assessment and Plan: Meets inpatient hospice criteria due to requiring continuous IV hydromorphone for control of dispnea and discomfort Remainder of palliative regimen as ordered (2) Septic shock: Code(s): A41.9 - Sepsis, unspecified organism; R65.21 - Severe sepsis with septic shock Status: Acute (3) Dementia: Code(s): F03.90 - Unspecified dementia, unspecified severity, without behavioral disturbance, psychotic disturbance, mood disturbance, and anxiety Status: Acute (4) Seizure-like activity: Code(s): R56.9 - Unspecified convulsions Status: Acute (5) Acute UTI (urinary tract infection): Code(s): N39.0 - Urinary tract infection, site not specified Status: Acute (6) Acute hyponatremia: Code(s): E87.1 - Hypo-osmolality and hyponatremia Status: Acute (7) Type 2 diabetes mellitus with hyperosmolar hyperglycemic state (HHS): Code(s): E11.00 - Type 2 diabetes mellitus with hyperosmolarity without nonketotic hyperglycemic-hyperosmolar coma (NKHHC); E11.65 - Type 2 diabetes mellitus with hyperglycemia Status: Acute Subjective Date/time seen: 01/11/22 19:43 Interval history: Palliative f/u. Ramains comfortable. Review of Systems Review of Systems: ROS unobtainable: Yes unobtainable due to medical condition Exam Narrative: Sleeping and does not respond to tactile or verbal stimuli Neck no jvd Chest coarse BS with diffuse coarse crackles Heart RR Abd BS hypoactive, soft Extr 1+ pitting ankle edema MS no gross deformities to visual inspection Neuro CN symmetric to inspection, Objective Data Vital Signs Vital Signs: Vital Signs - 24 hr 01/10/22 20:00 01/10/22 20:00 01/11/22 06:00 Temperature 96.5 F L Pulse Rate 68 Respiratory Rate 10 L 8 L Blood Pressure 84/41 L Pulse Oximetry 67 L 91 Oxygen Delivery Nasal Cannula Oxygen Flow Rate 2 01/11/22 08:00 01/11/22 14:00 Temperature 97.9 F Pulse Rate 68 Respiratory Rate 8 L Blood Pressure 95/37 L Pulse Oximetry 95 95 Oxygen Delivery Nasal Cannula Oxygen Flow Rate 2 Intake/Output Intake/Output: Intake & Output 01/08/22 01/09/22 01/10/22 01/11/22 23:59 23:59 23:59 23:59 Intake Total 12.3 15 100 Output Total 1400 50 150 Balance -1387.7 -35 -50 Meds/Results Medications: Active Medications Generic Name Dose Route Start Last Admin Trade Name Freq PRN Reason Stop Dose Admin Artificial Tears 0 drop 01/08/22 17:25 01/10/22 09:00 Artificial Tears Ophth Soln 15 Ml Bottle EACH EYE 1 drop Q12H PRN Administration Dry Eye(s) Bisacodyl 10 mg 01/08/22 17:25 Bisacodyl 10 Mg Suppository RECTAL DAILY PRN Constipation Diazepam 5 mg 01/08/22 17:24 01/11/22 12:34 Diazepam Inj (*Crx) 10 Mg/2 Ml Syringe IV PUSH 5 mg Q4H PRN Administration RESTLESSNESS Glycopyrrolate 0.1 mg 01/08/22 17:25 01/11/22 16:07 Glycopyrrolate Inj (*Sp) 0.2 Mg/Ml Vial IV PUSH 0.1 mg Q4H PRN Administration secretions Hydromorphone HCl 1 mg 01/10/22 13:21 Hydromorphone Hcl Inj (*Crx) 1 Mg/Ml Syr IV PUSH Q2H PRN PAIN/SOB Hydromorphone HCl 50 mg/ 100 mls @ 1 mls/hr 01/08/22 17:20 01/11/22 17:40 Sodium Chloride IV CONT 0.5 mg/hr .Q24H JELANI 1 mls/hr Administration 0.5 MG/HR Prochlorperazine Edisylate 10 mg 01/08/22 17:25 Prochlorperazine Edisylate 10 Mg/2 Ml Vial IV PUSH Q6H PRN Nausea And Vomiting
[2022-01-11 19:56] VITALS: RESP 16; O2SAT 95
[2022-01-11 20:00] VITALS: BP 122/41; PULSE 71; RESP 18; TEMP 36.3; O2SAT 90
[2022-01-12] MEDS: GLYCOPYRROLATE INJ (*SP) 0.2 MG/ML VIAL 0.1 MG IV PUSH (04:45)
[2022-01-12 08:00] VITALS: O2SAT 90
[2022-01-12 14:00] VITALS: BP 115/44; PULSE 66; RESP 10; TEMP 36.1; O2SAT 93
[2022-01-12] MEDS: HYDROmorphone HCL/PF (*CRX) 50 MG in SODIUM CHLORIDE 0.9% IV 95 ML IV CONT (16:52)
--- NOTE | 2022-01-12 19:08 | PM.IMPN ---
Progress Note: A&P Assessment and Plan (1) Palliative care encounter: Code(s): Z51.5 - Encounter for palliative care Status: Acute Assessment and Plan: Meets inpatient hospice criteria due to requiring continuous IV hydromorphone for control of dispnea and discomfort Remainder of palliative regimen as ordered (2) Septic shock: Code(s): A41.9 - Sepsis, unspecified organism; R65.21 - Severe sepsis with septic shock Status: Acute (3) Dementia: Code(s): F03.90 - Unspecified dementia, unspecified severity, without behavioral disturbance, psychotic disturbance, mood disturbance, and anxiety Status: Acute (4) Seizure-like activity: Code(s): R56.9 - Unspecified convulsions Status: Acute (5) Acute UTI (urinary tract infection): Code(s): N39.0 - Urinary tract infection, site not specified Status: Acute (6) Acute hyponatremia: Code(s): E87.1 - Hypo-osmolality and hyponatremia Status: Acute (7) Type 2 diabetes mellitus with hyperosmolar hyperglycemic state (HHS): Code(s): E11.00 - Type 2 diabetes mellitus with hyperosmolarity without nonketotic hyperglycemic-hyperosmolar coma (NKHHC); E11.65 - Type 2 diabetes mellitus with hyperglycemia Status: Acute Subjective Date/time seen: 01/12/22 19:08 Interval history: palliative f/u Remains comfortable Review of Systems Review of Systems: ROS unobtainable: Yes unobtainable due to medical condition Exam Narrative: Sleeping and does not respond to tactile or verbal stimuli Neck no jvd Chest coarse BS with diffuse coarse crackles Heart RR Abd BS hypoactive, soft Extr 1+ pitting ankle edema MS no gross deformities to visual inspection Neuro CN symmetric to inspection, Objective Data Vital Signs Vital Signs: Vital Signs - 24 hr 01/11/22 19:56 01/11/22 20:00 01/12/22 08:00 Temperature 97.3 F L Pulse Rate 71 Respiratory Rate 16 18 Blood Pressure 122/41 L Pulse Oximetry 95 90 90 Oxygen Delivery Nasal Cannula Nasal Cannula Oxygen Flow Rate 2 2 01/12/22 14:00 Temperature 97 F L Pulse Rate 66 Respiratory Rate 10 L Blood Pressure 115/44 L Pulse Oximetry 93 Oxygen Delivery Oxygen Flow Rate Intake/Output Intake/Output: Intake & Output 11/1901/10/22 01/11/22 01/12/22 23:59 23:59 23:59 23:59 Intake Total 12.3 15 100 100 Output Total 1400 50 150 500 Balance -1387.7 -35 -50 -400 Meds/Results Medications: Active Medications Generic Name Dose Route Start Last Admin Trade Name Freq PRN Reason Stop Dose Admin Artificial Tears 0 drop 01/08/22 17:25 01/10/22 09:00 Artificial Tears Ophth Soln 15 Ml Bottle EACH EYE 1 drop Q12H PRN Administration Dry Eye(s) Bisacodyl 10 mg 01/08/22 17:25 Bisacodyl 10 Mg Suppository RECTAL DAILY PRN Constipation Diazepam 5 mg 01/08/22 17:24 01/11/22 12:34 Diazepam Inj (*Crx) 10 Mg/2 Ml Syringe IV PUSH 5 mg Q4H PRN Administration RESTLESSNESS Glycopyrrolate 0.1 mg 01/08/22 17:25 01/12/22 04:45 Glycopyrrolate Inj (*Sp) 0.2 Mg/Ml Vial IV PUSH 0.1 mg Q4H PRN Administration secretions Hydromorphone HCl 1 mg 01/10/22 13:21 Hydromorphone Hcl Inj (*Crx) 1 Mg/Ml Syr IV PUSH Q2H PRN PAIN/SOB Hydromorphone HCl 50 mg/ 100 mls @ 1 mls/hr 01/08/22 17:20 01/12/22 16:52 Sodium Chloride IV CONT 0.5 mg/hr .Q24H JELANI 1 mls/hr Administration 0.5 MG/HR Prochlorperazine Edisylate 10 mg 01/08/22 17:25 Prochlorperazine Edisylate 10 Mg/2 Ml Vial IV PUSH Q6H PRN Nausea And Vomiting
[2022-01-12 20:00] VITALS: BP 119/52; PULSE 71; RESP 12; TEMP 36.2; O2SAT 93
[2022-01-13] MEDS: GLYCOPYRROLATE INJ (*SP) 0.2 MG/ML VIAL 0.1 MG IV PUSH ×3 (00:39→12:25)
[2022-01-13 08:10] VITALS: PULSE 75; RESP 10; O2SAT 96
[2022-01-13 08:53] VITALS: BP 135/56; PULSE 75; RESP 10; TEMP 36.3; O2SAT 96
[2022-01-13] MEDS: HYDROmorphone HCL/PF (*CRX) 50 MG in SODIUM CHLORIDE 0.9% IV 95 ML IV CONT (17:41)
[2022-01-13 20:00] VITALS: BP 118/52; PULSE 69; RESP 8; TEMP 36; O2SAT 91; O2SAT 92
--- NOTE | 2022-01-13 20:16 | PM.IMPN ---
Progress Note: A&P Assessment and Plan (1) Palliative care encounter: Code(s): Z51.5 - Encounter for palliative care Status: Acute Assessment and Plan: Meets inpatient hospice criteria due to requiring continuous IV hydromorphone for control of dispnea and discomfort Remainder of palliative regimen as ordered (2) Septic shock: Code(s): A41.9 - Sepsis, unspecified organism; R65.21 - Severe sepsis with septic shock Status: Acute (3) Dementia: Code(s): F03.90 - Unspecified dementia, unspecified severity, without behavioral disturbance, psychotic disturbance, mood disturbance, and anxiety Status: Acute (4) Seizure-like activity: Code(s): R56.9 - Unspecified convulsions Status: Acute (5) Acute UTI (urinary tract infection): Code(s): N39.0 - Urinary tract infection, site not specified Status: Acute (6) Acute hyponatremia: Code(s): E87.1 - Hypo-osmolality and hyponatremia Status: Acute (7) Type 2 diabetes mellitus with hyperosmolar hyperglycemic state (HHS): Code(s): E11.00 - Type 2 diabetes mellitus with hyperosmolarity without nonketotic hyperglycemic-hyperosmolar coma (NKHHC); E11.65 - Type 2 diabetes mellitus with hyperglycemia Status: Acute Subjective Date/time seen: 01/13/22 20:16 Interval history: Palliative f/u telehealth. Remains comfortable. Review of Systems Review of Systems: ROS unobtainable: Yes unobtainable due to medical condition Exam Narrative: sleeping Objective Data Vital Signs Vital Signs: Vital Signs - 24 hr 01/13/22 08:53 01/13/22 08:10 Temperature 97.3 F L Pulse Rate 75 75 Respiratory Rate 10 L 10 L Blood Pressure 135/56 L Pulse Oximetry 96 96 Oxygen Delivery Nasal Cannula Oxygen Flow Rate 2 Intake/Output Intake/Output: Intake & Output 01/10/22 01/11/22 01/12/22 01/13/22 23:59 23:59 23:59 23:59 Intake Total 15 100 100 100 Output Total 50 150 500 450 Balance -35 -50 -400 -350 Meds/Results Medications: Active Medications Generic Name Dose Route Start Last Admin Trade Name Freq PRN Reason Stop Dose Admin Artificial Tears 0 drop 01/08/22 17:25 01/10/22 09:00 Artificial Tears Ophth Soln 15 Ml Bottle EACH EYE 1 drop Q12H PRN Administration Dry Eye(s) Bisacodyl 10 mg 01/08/22 17:25 Bisacodyl 10 Mg Suppository RECTAL DAILY PRN Constipation Diazepam 5 mg 01/08/22 17:24 01/11/22 12:34 Diazepam Inj (*Crx) 10 Mg/2 Ml Syringe IV PUSH 5 mg Q4H PRN Administration RESTLESSNESS Glycopyrrolate 0.1 mg 01/08/22 17:25 01/13/22 12:25 Glycopyrrolate Inj (*Sp) 0.2 Mg/Ml Vial IV PUSH 0.1 mg Q4H PRN Administration secretions Hydromorphone HCl 1 mg 01/10/22 13:21 Hydromorphone Hcl Inj (*Crx) 1 Mg/Ml Syr IV PUSH Q2H PRN PAIN/SOB Hydromorphone HCl 50 mg/ 100 mls @ 1 mls/hr 01/08/22 17:20 01/13/22 17:41 Sodium Chloride IV CONT 0.5 mg/hr .Q24H JELANI 1 mls/hr Administration 0.5 MG/HR Prochlorperazine Edisylate 10 mg 01/08/22 17:25 Prochlorperazine Edisylate 10 Mg/2 Ml Vial IV PUSH Q6H PRN Nausea And Vomiting
[2022-01-13 20:58] VITALS: O2SAT 92
[2022-01-14 01:00] VITALS: RESP 9
[2022-01-14 06:40] VITALS: BP 117/54; PULSE 93; RESP 12; TEMP 36.2; O2SAT 83
--- NOTE | 2022-01-14 11:00 | PC.NURSE ---
Checked on patient around 0740 and she was breathing and resting peacefully. Rechecked around 0807 and patient was found to have passed, had charged nurse come in to assess.
--- NOTE | 2022-01-14 23:11 | P.DN_ITS ---
Discharge Summary Date and Time Date of : 01/14/22 Time of : 08:20 Provider Pronounced By: Julieta Royal RN Probable Cause of Probable Cause of : septic shock due to proteus UTI Summary Hospital Course: Admitted to inpatient hospice service due to uncontrolled dyspnea and discomfort medications titrated to comfort Mrs. Levin comfortably. Additional Data Confirmation of as documented by pronouncing clinician: Pupillary Reflex, Palpable Pulses, Response to Stimuli, Heart Tones and Breath Sounds Name of Provider Notified: Dr. Carr Time Provider Notified: 09:00 Provider Requests Autopsy: No Family Requests Autopsy: No Global Chief Creative Officer Notified: Yes Date [facility] Notified of : 01/14/22 Time [facility] Notified of : 09:05
== END 2022-01-14 08:20 | disposition expired | DRG 951 ==
PROVIDERS: Admitting Provider Internal Medicine; PCP Family Medicine; Visit Provider Internal Medicine
DX: Z51.5 Encounter for palliative care (principal); E11.00 Type 2 diabetes mellitus with hyperosmolarity without nonketotic hyperglycemic-hyperosmolar coma (NKHHC); A41.9 Sepsis, unspecified organism; R65.21 Severe sepsis with septic shock; N39.0 Urinary tract infection, site not specified; E87.1 Hypo-osmolality and hyponatremia; Z66 Do not resuscitate; F03.90 Unspecified dementia, unspecified severity, without behavioral disturbance, psychotic disturbance, mood disturbance, and anxiety; E11.65 Type 2 diabetes mellitus with hyperglycemia; R56.9 Unspecified convulsions; B96.4 Proteus (mirabilis) (morganii) as the cause of diseases classified elsewhere; Z86.16 Personal history of COVID-19; Z87.891 Personal history of nicotine dependence
CPT/HCPCS: A9270; J1170; J3360